=== PATIENT | male | born 1975 | race Caucasian/White ===

== ENCOUNTER → 2018-11-01 11:38 | Outpatient (CLI) | payer BC, SELFPAY ==
[2017-03-22 16:56] VITALS: BMI 22.7
[2018-11-01 12:57] LABS: Color, Urine Yellow (Yellow); Glucose, Dipstick Normal (Normal); Ketone-Dipstick Negative (Negative); Leukocyte Esterase-Dipstick Negative /ul (Negative); Nitrite-Dipstick Negative (Negative); Occult Blood-Urine Negative /ul (Negative); Protein-Dipstick Negative (Negative); Specific Gravity, Urine 1.015 (1.002-1.030); Urine Bilirubin Dipstick Negative (Negative); Urine Clarity Clear (Clear); Urine Urobilinogen Normal (Normal)
[2018-11-01 12:59] LABS: Absolute Lymphocyte Count 2.68 X10^3/ul (0.83-4.51); Absolute Neutrophil Count 3.3 X10^3/uL (2.0-7.7); Basophil# 0.04 X10^3/uL; Basophil% 0.6 % (0-1); Eosinophil# 0.18 X10^3/uL; Eosinophils% 2.7 % (0-5); Hematocrit 48.8 % (40-54); Hemoglobin 16.1 g/dl (13.0-16.5); Lymphocyte # 2.68 X10^3/ul (4.0); Lymphocyte % 39.9 % (19-41); Mean Corpuscular Volume 87.9 fL (80-94); Mean Platelet Vol. 9.9 fl (6.2-12.0); Monocyte# 0.51 X10^3/uL; Monocyte% 7.6 % (0-10); Neutrophil # 3.29 X10^3/uL (2.7-7.7); Neutrophil % 48.9 % (47-70); Platelet Count 280 K/mm3 (150-450); RBC Distribution Width CV 12.7 % (11.6-14.6); RBC Distribution Width SD 40.4 fl (35.1-43.9); Red Blood Count 5.55 M/mm3 (4.6-6.2); White Blood Count 6.7 K/mm3 (4.4-11.0)
[2018-11-01 13:00] LABS: POSITIVE COUNT NO; POSITIVE DIFFERENTIAL NO; POSITIVE MORPHOLOGY NO
[2018-11-01 13:09] LABS: ALB/GLOB Ratio 1.1 RATIO (0.9-2.4); AST(SGOT) 27 U/L (15-37); Alanine Aminotransfer ALT/SGPT 59 U/L (16-61); Albumin, Serum 4.1 g/dL (3.2-5.0); Alkaline Phosphatase 58 U/L (45-117); Anion Gap 8 (5-15); BUN 13 mg/dL (7-18); BUN/Creat Ratio 13.5 RATIO (10-20); Calcium,Total 8.8 mg/dL (8.5-10.1); Chloride 105 mmol/L (98-107); Cholesterol 262 mg/dL (200); Creatinine, Serum 0.97 mg/dL (0.70-1.30); EST Glomerular Filtration Rate 90 mL/min (>60); Est Glom Filt Rate - Afr Amer 109 mL/min (>60); Globulin 3.8 g/dL (2.2-4.2); Glucose 102 mg/dL (74-106); High Density Lipoprotein 38 mg/dL; Protein, Total 7.9 g/dL (6.4-8.2); Sodium Level 143 mmol/L (136-145); Triglycerides 174 mg/dL; Very Low Density Lipoprotein 35 mg/dL (5-40)
== END ==
PROVIDERS: Family Provider Family Medicine; PCP Family Medicine; Referring Provider Family Medicine; Visit Provider Family Medicine
DX: Z00.00 Encounter for general adult medical examination without abnormal findings (principal); I10 Essential (primary) hypertension
CPT/HCPCS: 36415; 80053; 80061; 81002; 85025

== ENCOUNTER → 2021-06-23 08:58 | Outpatient (CLI) | payer BC, SELFPAY ==
[2021-06-23 10:16] LABS: Absolute Lymphocyte Count 1.82 X10^3/uL (0.83-4.51); Absolute Neutrophil Count 2.6 X10^3/uL (2.0-7.7); Basophil# 0.03 X10^3/uL; Basophil% 0.6 % (0-1); Eosinophil# 0.16 X10^3/uL; Eosinophils% 3.2 % (0-5); Hematocrit 45.2 % (40-54); Hemoglobin 15.3 g/dL (13.0-16.5); Lymphocyte # 1.82 X10^3/ul (0.83-4.51); Lymphocyte % 36.1 % (19-41); Mean Corp Hgb Conc 33.8 g/dL (32-36); Mean Corpuscular Hgb 30.6 pg (27.0-32.0); Mean Corpuscular Volume 90.4 fL (80-94); Mean Platelet Vol. 10.1 fl (6.2-12.0); Monocyte% 7.9 % (0-10); NRBC Flagged by Analyzer 0 % (0-5); Neutrophil # 2.62 X10^3/uL (2.7-7.7); Platelet Count 266 K/mm3 (150-450); RBC Distribution Width SD 39.8 fl (35.1-43.9)
[2021-06-23 10:37] LABS: ALB/GLOB Ratio 1.1 RATIO (0.9-2.4); AST(SGOT) 13 U/L (15-37); Alanine Aminotransfer ALT/SGPT 28 U/L (16-61); Albumin, Serum 3.8 g/dL (3.2-5.0); Alkaline Phosphatase 41 U/L (45-117); Anion Gap 6 (5-15); BUN 12 mg/dL (7-18); BUN/Creat Ratio 11.7 RATIO (10-20); Calcium,Total 8.7 mg/dL (8.5-10.1); Chloride 103 mmol/L (98-107); Cholesterol 247 mg/dL (200); Creatinine, Serum 1.03 mg/dL (0.70-1.30); EST Glomerular Filtration Rate 83 mL/min (>60); Est Glom Filt Rate - Afr Amer 100 mL/min (>60); Globulin 3.6 g/dL (2.2-4.2); Glucose 113 mg/dL (74-106); High Density Lipoprotein 42 mg/dL; Potassium 4.3 mmol/L (3.5-5.1); Protein, Total 7.4 g/dL (6.4-8.2); Sodium Level 138 mmol/L (136-145); Thyroid Stim Hormone (TSH) 1.28 uIU/mL (0.358-3.74); Triglycerides 101 mg/dL; Very Low Density Lipoprotein 20 mg/dL (5-40)
[2021-06-24 13:04] LABS: Hemoglobin A1c 5.7 % (3.8-5.6)
== END ==
PROVIDERS: PCP Family Medicine; Referring Provider Family Medicine; Visit Provider Family Medicine
DX: I10 Essential (primary) hypertension (principal); R73.9 Hyperglycemia, unspecified
CPT/HCPCS: 36415; 80053; 80061; 83036; 84443; 85025

== ENCOUNTER 2021-09-19 15:53 | Outpatient (CLI) | payer BC, SELFPAY ==
[2021-09-19 15:58] LABS: Bacteria 0 SEEN /hpf (None Seen); Mucous, Urine 0 SEEN /hpf (<or=2+); Red Blood Cells-Urine 0 SEEN /hpf (0-5); Squamous Epithelial Cells - UA 0 SEEN /hpf (0-5); White Blood Cells 0 SEEN /hpf (0-5)
[2021-09-19 17:29] LABS: Absolute Lymphocyte Count 2.36 X10^3/uL (0.83-4.51); Absolute Neutrophil Count 3.5 X10^3/uL (2.0-7.7); Basophil# 0.04 X10^3/uL; Basophil% 0.6 % (0-1); Color, Urine Yellow (Yellow); Eosinophil# 0.18 X10^3/uL; Eosinophils% 2.7 % (0-5); Glucose, Dipstick Normal (Normal); Hematocrit 44.7 % (40-54); Hemoglobin 14.5 g/dL (13.0-16.5); Ketone-Dipstick Negative (Negative); Leukocyte Esterase-Dipstick Negative /ul (Negative); Lymphocyte # 2.36 X10^3/ul (0.83-4.51); Lymphocyte % 35.9 % (19-41); Mean Corp Hgb Conc 32.4 g/dL (32-36); Mean Corpuscular Hgb 29.4 pg (27.0-32.0); Mean Corpuscular Volume 90.5 fL (80-94); Mean Platelet Vol. 10.3 fl (6.2-12.0); Monocyte# 0.51 X10^3/uL; Monocyte% 7.8 % (0-10); NRBC Flagged by Analyzer 0 % (0-5); Neutrophil # 3.47 X10^3/uL (2.7-7.7); Neutrophil % 52.8 % (47-70); Nitrite-Dipstick Negative (Negative); Occult Blood-Urine Negative /ul (Negative); Platelet Count 310 K/mm3 (150-450); Protein-Dipstick Negative (Negative); RBC Distribution Width CV 12.3 % (11.6-14.6); RBC Distribution Width SD 40.8 fl (35.1-43.9); Red Blood Count 4.94 M/mm3 (4.6-6.2); Specific Gravity, Urine 1.015 (1.002-1.030); Urine Bilirubin Dipstick Negative (Negative); Urine Clarity Clear (Clear); Urine Urobilinogen Normal (Normal); White Blood Count 6.6 K/mm3 (4.4-11.0)
[2021-09-19 17:45] LABS: ALB/GLOB Ratio 1.2 RATIO (0.9-2.4); AST(SGOT) 12 U/L (15-37); Alanine Aminotransfer ALT/SGPT 23 U/L (16-61); Albumin, Serum 4.1 g/dL (3.2-5.0); Alkaline Phosphatase 44 U/L (45-117); Anion Gap 5 (5-15); BUN 14 mg/dL (7-18); BUN/Creat Ratio 15.3 RATIO (10-20); Calcium,Total 9.1 mg/dL (8.5-10.1); Chloride 103 mmol/L (98-107); Cholesterol 205 mg/dL (200); Creatinine, Serum 0.92 mg/dL (0.70-1.30); EST Glomerular Filtration Rate 95 mL/min (>60); Est Glom Filt Rate - Afr Amer 114 mL/min (>60); Globulin 3.3 g/dL (2.2-4.2); Glucose 97 mg/dL (74-106); High Density Lipoprotein 51 mg/dL; Potassium 3.9 mmol/L (3.5-5.1); Protein, Total 7.4 g/dL (6.4-8.2); Sodium Level 137 mmol/L (136-145); Triglycerides 147 mg/dL; Very Low Density Lipoprotein 29 mg/dL (5-40)
[2021-09-19 17:51] LABS: Hemoglobin A1c 5.1 % (3.8-5.6)
== END 2021-09-19 23:59 | disposition short-term general hospital (02) ==
LOC: MFPLAB 15:56
PROVIDERS: PCP Family Medicine; Referring Provider Family Medicine; Visit Provider Family Medicine
DX: I10 Essential (primary) hypertension (principal); E78.5 Hyperlipidemia, unspecified; R73.02 Impaired glucose tolerance (oral)
CPT/HCPCS: 36415; 80053; 80061; 81001; 83036; 85025

== ENCOUNTER 2021-11-03 09:54 | Outpatient (CLI) | payer BC, SELFPAY ==
--- NOTE | 2021-11-03 09:58 | ECHOD_ITS ---
Reason For Study: Arrhythmia Procedure This was a 2D Doppler, Color Flow transthoracic echocardiogram. Exam performed in department. Left Ventricle Normal LV size. Left ventricular systolic function is normal. The estimated ejection fraction is 55 %. Stage 2 diastolic dysfunction. No regional wall motion abnormalities noted. Right Ventricle Normal RV size. Normal systolic function. Atria Normal left atrium. Normal right atrium. Mitral Valve Mild mitral valve prolapse. Trivial mitral valve insufficiency. Tricuspid Valve Normal tricuspid valve. Aortic Valve Trisinus/trileaflet aortic valve. Pulmonic Valve Normal pulmonic valve. Great Vessels Normal aortic root. The pulmonary artery is normal size. Normal inferior vena cava. Pericardium/Pleural No pericardial effusion. MMode/2D Measurements & Calculations LVIDd: 4.8 cm IVSd: 1.0 cm Ao root diam: 3.0 cm LVIDs: 3.1 cm LVPWd: 1.0 cm RVDd: 3.5 cm FS: 35.1 % LAV(MOD-bp): 29.0 ml LVAd ap4: 32.3 cm2 LVAd ap2: 32.9 cm2 LAV(MOD-bp) Indexed: 14.0 ml/m2 LVLd ap4: 8.2 cm LVLd ap2: 8.5 cm LAV(MOD-sp2): 26.0 ml EDV(MOD-sp4): 106.2 ml EDV(MOD-sp2): 106.2 ml LAV(MOD-sp4): 31.0 ml EDV(sp4-el): 108.0 ml EDV(sp2-el): 108.0 ml LVAs ap4: 20.2 cm2 LVAs ap2: 20.6 cm2 LVLs ap4: 7.3 cm LVLs ap2: 7.7 cm ESV(MOD-sp4): 47.1 ml ESV(MOD-sp2): 46.8 ml ESV(sp4-el): 47.5 ml ESV(sp2-el): 47.1 ml EF(MOD-sp4): 55.6 % EF(MOD-sp2): 55.9 % EF(sp4-el): 56.0 % SV(MOD-sp4): 59.1 ml SV(MOD-sp2): 59.4 ml SV(sp4-el): 60.5 ml LA dimension(2D): 2.9 cm LA A4 area: 13.8 cm2 RA A4 area: 10.5 cm2 Doppler Measurements & Calculations MV E max kole: 94.6 cm/sec Lat Peak E' Kole: 12.7 cm/sec Med Peak E' Kole: 10.3 cm/sec MV A max kole: 50.6 cm/sec E/E' lat: 7.4 E/E' med: 9.1 MV E/A: 1.9 Ao V2 max: 116.4 cm/sec LV V1 max: 91.4 cm/sec PA V2 max: 88.4 cm/sec Ao max P.4 mmHg LV V1 max P.3 mmHg ECHO/Echo Complete Interpretation Summary Normal LV size. Left ventricular systolic function is normal. The estimated ejection fraction is 55 %. Stage 2 diastolic dysfunction. Mild mitral valve prolapse. Trivial mitral valve insufficiency. Ordering Physician: Tank Jose/Reinaldo Morley Referring Physician: Jyothi Marrufo Performed By: Princess Miranda RDCS
== END 2021-11-03 23:59 | disposition home or self-care (01) ==
PROVIDERS: PCP Family Medicine; Referring Provider Nurse Practitioner Family; Visit Provider Nurse Practitioner Family
DX: I34.1 Nonrheumatic mitral (valve) prolapse (principal); I47.1 Supraventricular tachycardia; I10 Essential (primary) hypertension; R00.2 Palpitations; I45.6 Pre-excitation syndrome
CPT/HCPCS: 93306

== ENCOUNTER → 2022-03-23 | Outpatient (CLI) | payer BC, SELFPAY ==
[2022-03-23 09:51] LABS: Bacteria 0 SEEN /hpf (None Seen); Mucous, Urine 0 SEEN /hpf (<or=2+); Red Blood Cells-Urine 0 SEEN /hpf (0-5); White Blood Cells 0 SEEN /hpf (0-5)
[2022-03-23 12:22] LABS: Absolute Lymphocyte Count 1.44 X10^3/uL (0.83-4.51); Absolute Neutrophil Count 2.2 X10^3/uL (2.0-7.7); Basophil# 0.03 X10^3/uL; Basophil% 0.7 % (0-1); Eosinophil# 0.12 X10^3/uL; Eosinophils% 2.8 % (0-5); Hematocrit 47.6 % (40-54); Hemoglobin 15.6 g/dL (13.0-16.5); Lymphocyte # 1.44 X10^3/ul (0.83-4.51); Lymphocyte % 34.1 % (19-41); Mean Corp Hgb Conc 32.8 g/dL (32-36); Mean Corpuscular Hgb 30.3 pg (27.0-32.0); Mean Corpuscular Volume 92.4 fL (80-94); Mean Platelet Vol. 10.2 fl (6.2-12.0); Monocyte# 0.39 X10^3/uL; Monocyte% 9.2 % (0-10); NRBC Flagged by Analyzer 0 % (0-5); Neutrophil # 2.22 X10^3/uL (2.7-7.7); Neutrophil % 52.7 % (47-70); Platelet Count 266 K/mm3 (150-450); RBC Distribution Width CV 12.3 % (11.6-14.6); RBC Distribution Width SD 42.2 fl (35.1-43.9); Red Blood Count 5.15 M/mm3 (4.6-6.2); White Blood Count 4.2 K/mm3 (4.4-11.0)
[2022-03-23 12:35] LABS: Color, Urine Yellow (Yellow); Glucose, Dipstick Normal (Normal); Ketone-Dipstick Negative (Negative); Leukocyte Esterase-Dipstick Negative /ul (Negative); Nitrite-Dipstick Negative (Negative); Occult Blood-Urine Negative /ul (Negative); Protein-Dipstick Negative (Negative); Urine Bilirubin Dipstick Negative (Negative); Urine Clarity Sl. Cloudy (Clear); Urine Urobilinogen Normal (Normal)
[2022-03-23 12:38] LABS: ALB/GLOB Ratio 1.1 RATIO (0.9-2.4); AST(SGOT) 15 U/L (15-37); Alanine Aminotransfer ALT/SGPT 25 U/L (16-61); Alkaline Phosphatase 43 U/L (45-117); Anion Gap 6 (5-15); BUN 12 mg/dL (7-18); BUN/Creat Ratio 13.3 RATIO (10-20); Calcium,Total 8.9 mg/dL (8.5-10.1); Chloride 105 mmol/L (98-107); Cholesterol 232 mg/dL (200); EST Glomerular Filtration Rate 96 mL/min (>60); Est Glom Filt Rate - Afr Amer 117 mL/min (>60); Globulin 3.6 g/dL (2.2-4.2); Glucose 105 mg/dL (74-106); High Density Lipoprotein 60 mg/dL; Potassium 4.1 mmol/L (3.5-5.1); Protein, Total 7.6 g/dL (6.4-8.2); Sodium Level 138 mmol/L (136-145); Triglycerides 119 mg/dL; Very Low Density Lipoprotein 24 mg/dL (5-40)
[2022-03-23 12:46] LABS: Squamous Epithelial Cells - UA 0-5 SEEN /hpf (0-5)
[2022-03-23 12:57] LABS: Hemoglobin A1c 5.2 % (3.8-5.6)
== END | disposition home or self-care (01) ==
LOC: MFPLAB 09:49
PROVIDERS: PCP Family Medicine; Referring Provider Family Medicine; Visit Provider Family Medicine
DX: E78.5 Hyperlipidemia, unspecified (principal); R73.02 Impaired glucose tolerance (oral); I10 Essential (primary) hypertension
CPT/HCPCS: 36415; 80053; 80061; 81001; 83036; 85025

== ENCOUNTER → 2023-08-05 | Outpatient (CLI) | payer BC, SELFPAY ==
[2023-08-05 16:45] LABS: Bacteria 0 SEEN /hpf (None Seen); Mucous, Urine 0 SEEN /hpf (<or=2+); Red Blood Cells-Urine 0 SEEN /hpf (0-5); Squamous Epithelial Cells - UA 0 SEEN /hpf (0-5)
[2023-08-05 17:43] LABS: Color, Urine Straw (Yellow); Glucose, Dipstick Normal (Normal); Ketone-Dipstick Negative (Negative); Leukocyte Esterase-Dipstick 25 /ul (Negative); Nitrite-Dipstick Negative (Negative); Occult Blood-Urine Negative /ul (Negative); Protein-Dipstick Negative (Negative); Specific Gravity, Urine 1.005 (1.002-1.030); Urine Bilirubin Dipstick Negative (Negative); Urine Clarity Clear (Clear); Urine Urobilinogen Normal (Normal); Urine pH 6.5 (5.0 - 8.0)
[2023-08-05 17:50] LABS: Absolute Lymphocyte Count 2.33 X10^3/uL (0.83-4.51); Absolute Neutrophil Count 3.4 X10^3/uL (2.0-7.7); Basophil# 0.05 X10^3/uL; Basophil% 0.8 % (0-1); Eosinophil# 0.18 X10^3/uL; Eosinophils% 2.7 % (0-5); Hematocrit 46.3 % (40-54); Hemoglobin 14.8 g/dL (13.0-16.5); Lymphocyte # 2.33 X10^3/ul (0.83-4.51); Lymphocyte % 35.4 % (19-41); Mean Corpuscular Hgb 29.8 pg (27.0-32.0); Mean Corpuscular Volume 93.2 fL (80-94); Mean Platelet Vol. 9.4 fl (6.2-12.0); Monocyte# 0.59 X10^3/uL; NRBC Flagged by Analyzer 0 % (0-5); Neutrophil # 3.39 X10^3/uL (2.7-7.7); Neutrophil % 51.5 % (47-70); Platelet Count 251 K/mm3 (150-450); RBC Distribution Width CV 12.9 % (11.6-14.6); RBC Distribution Width SD 43.6 fl (35.1-43.9); Red Blood Count 4.97 M/mm3 (4.6-6.2); White Blood Cells 0-5 SEEN /hpf (0-5); White Blood Count 6.6 K/mm3 (4.4-11.0)
[2023-08-05 18:15] LABS: Hemoglobin A1c 5.5 % (3.8-5.6)
[2023-08-05 18:23] LABS: ALB/GLOB Ratio 1.2 RATIO (0.9-2.4); AST(SGOT) 19 U/L (15-37); Alanine Aminotransfer ALT/SGPT 30 U/L (16-61); Albumin, Serum 4.1 g/dL (3.2-5.0); Alkaline Phosphatase 39 U/L (45-117); Anion Gap 5 (5-15); BUN 14 mg/dL (7-18); BUN/Creat Ratio 13.5 RATIO (10-20); Calcium,Total 8.8 mg/dL (8.5-10.1); Chloride 103 mmol/L (98-107); Cholesterol 249 mg/dL (200); Creatinine, Serum 1.04 mg/dL (0.70-1.30); EST Glomerular Filtration Rate 81 mL/min (>60); Est Glom Filt Rate - Afr Amer 98 mL/min (>60); Globulin 3.5 g/dL (2.2-4.2); Glucose 92 mg/dL (74-106); High Density Lipoprotein 63 mg/dL; Potassium 3.6 mmol/L (3.5-5.1); Protein, Total 7.6 g/dL (6.4-8.2); Sodium Level 137 mmol/L (136-145); Triglycerides 120 mg/dL; Very Low Density Lipoprotein 24 mg/dL (5-40)
== END | disposition home or self-care (01) ==
LOC: MFPLAB 16:39
PROVIDERS: PCP Family Medicine; Visit Provider Family Medicine
DX: R73.02 Impaired glucose tolerance (oral) (principal); I10 Essential (primary) hypertension
CPT/HCPCS: 36415; 80053; 80061; 81001; 83036; 85025

== ENCOUNTER 2023-12-06 18:09 | Emergency (ER) | payer BC, SELFPAY ==
[2023-12-06 18:10] VITALS: BP 156/114; PULSE 94; RESP 16; TEMP 36.7; O2SAT 99; BMI 23.6
--- NOTE | 2023-12-06 18:16 | EKG12_ITS ---
Test Reason : PALPS Blood Pressure : / mmHG Vent. Rate : 091 BPM Atrial Rate : 098 BPM P-R Int : 160 ms QRS Dur : 090 ms QT Int : 358 ms P-R-T Axes : 036 005 024 degrees QTc Int : 440 ms Sinus rhythm with sinus arrhythmia with occasional Premature ventricular complexes Otherwise normal ECG Confirmed by Eugene Mosquera ([id number]), editor house organ JESSICA BILLINGS ([id number]) on 12/08/2023 5:44:39 AM Referred By: Confirmed By:Eugene Mosquera
--- NOTE | 2023-12-06 18:33 | ED.VIS.CHEST ---
HPI History of Present Illness Chief Complaint: Palpitations Informant: patient Onset/Context/Timing Onset: Today Activity at onset: sudden Timing: Continuous Worsened By: Nothing Relieved By: Nothing Associated Symptoms: Positive for Palpitations; Negative for Nausea, Vomiting, Diaphoresis, Dyspnea, Cough, Fever, Lightheadedness or Acid Reflux Narrative Narrative: 48-year-old male history of AV cipriano tachycardia and Yxnvl-Aovjlpnfm-Bgbfq at age 22 at [facility] he had an ablation done. Also history of GE reflux and mitral valve prolapse. Today he was outside working doing yard work and exerting palpitations around 3:00. Heart rate was around 108. No chest pain. No shortness of breath. He does not drink caffeine. He has no thyroid history. He denies recent illness other than a URI several weeks ago. Since his ablation he has done well. He is on metoprolol. Prior Similar Symptoms: Yes Recent Illness/Hospitalization: No CVD Risk Factors: Positive for Hypertension; Negative for Diabetes PE Risk Factors: Negative for Recent Travel/Surgery, Recent Immobilization, Prior DVT or PE, Cancer or OCP + Smoking + >/=35 TAD Risk Factors: Negative for Marfan's Syndrome [facility] Medical History Acute bronchitis, unspecified Acute maxillary sinusitis, unspecified AVNRT (AV cipriano re-entry tachycardia) Essential hypertension GERD (gastroesophageal reflux disease) Hyperlipidemia Intermittent palpitations Laceration of left wrist Lipoma of back Nonrheumatic mitral (valve) prolapse URI (upper respiratory infection) WPW (Sfish-Ztxvuonho-Gvosj syndrome) Home Medications lisinopril 20 mg tablet 10 mg PO DAILY 10/06/21 [History Last Taken Unknown] metoprolol succinate 50 mg tablet,extended release 24 hr 50 mg PO DAILY #90 tabs 09/22/23 [Rx Last Taken Unknown] azithromycin 250 mg tablet 250 mg PO QDAY #6 tabs 11/23/23 [Rx Last Taken Unknown] Allergy/AdvReac Type Severity Reaction Status Date / Time No Known Allergies Allergy Verified 11/23/23 15:45 Family History Father Heart disease Myocardial infarction, Onset Age: 62 Surgical History History of radiofrequency ablation procedure for cardiac arrhythmia (05/13/99) History of shoulder surgery Social History Smoking Status: Never smoker alcohol intake: current alcohol intake frequency: a few times a month substance use type: does not use ROS ROS ED ROS Narrative Palpitations. No chest pain. No shortness of breath. No recent illness. Review of Systems ROS Unobtainable: Denies due to encephalopathy Constitutional Constitutional ED: Denies chills or fever(s) Eyes Eyes: Reports none ENT ENT ED: Denies ear pain Cardiovascular Cardiovascular: Reports as per HPI and palpitations; Denies chest pain Respiratory/Chest Respiratory/Chest: Denies cough or dyspnea Gastrointestinal Gastrointestinal: Denies abdominal pain Genitourinary Genitourinary ED: Denies dysuria or hematuria Musculoskeletal Musculoskeletal: Denies arthralgias, back pain, myalgias or neck pain Integumentary Denies abscess Neurologic Neurologic: Denies headache(s) Psychiatric Psychiatric: Denies anxiety or depression Endocrine Endocrinology: Denies cold intolerance Hematologic/Lymphatic Hematologic/Lymphatic: Denies easy bleeding, easy bruising or lymphadenopathy Allergic/Immunologic Allergic/Immunologic ED: Denies mouth swelling, tongue swelling or urticaria EXAM Physical Exam Narrative Exam Narrative: 48-year-old male vital signs stable afebrile. Initial blood pressure 156/114 to be rechecked. Pulse ox 9 9% on room air. Heart rate 94. PVCs on the monitor. HEENT exam unremarkable. Neck nontender no thyromegaly. No lymphadenopathy. Lungs clear to auscultation bilaterally. Heart regular rhythm occasional PVC. No murmur. Chest wall and ribs nontender. Abdomen soft nontender. Moving all 4 extremities. Calves are nontender without edema or cords. Neurologically is awake alert no focal motor deficits. Const Vital Signs: 12/06/23 18:10 12/06/23 18:39 12/06/23 18:41 Temperature 98.1 F Temperature Source Temporal Pulse Rate 94 Respiratory Rate 16 Respiratory Effort Normal Non-Labored Blood Pressure 156/114 H Blood Pressure Mean 128 Pulse Ox 99 98 Oxygen Delivery Method Room Air Room Air 12/06/23 19:09 Temperature 97.5 F L Temperature Source Oral Pulse Rate 88 Respiratory Rate 19 H Respiratory Effort Blood Pressure 135/88 H Blood Pressure Mean 103 Pulse Ox 98 Oxygen Delivery Method Room Air Positive well nourished and well developed; Negative for obese, cachectic, contractures or unkempt General Appearance ED: well developed and NAD; Negative for unkempt, cachectic, contractures or pallor Nutritional Appearance: Negative for cachectic or obese HEENT Reports moist mucous membranes normocephalic and atraumatic; Negative for trauma or tenderness Eyes PERRL and EOMs intact bilaterally General Eye ED: Negative for pale conjunctiva or scleral icterus Neck no lymphadenopathy, supple and no JVD General: Negative for tenderness Chest Wall inspection of chest normal and palpation of chest normal Chest: Negative for tenderness Resp normal respiratory effort and clear to auscultation bilaterally Effort and Inspection: Negative for respiratory distress Auscultation: Negative for rales, rhonchi, wheezes or diminished lung sounds Cardio regular rate, regular rhythm, S2 normal heart sound and no murmurs Rate: other Other Details: Occasional PVCs on monitor. ; Negative for bradycardia or tachycardic Rhythm: Negative for abnormal rhythm Peripheral Pulses: pulses 2+ throughout GI normal to inspection, nondistended, normoactive bowel sounds, soft to palpation, non-tender, non-distended and no masses Back/Spine no CVA tenderness and no thoracic nor lumbar tenderness General Back: Negative for CVA tenderness Cervical Spine: Negative for cervical spine tenderness Extremity normal to inspection General Extremety ED: Negative for edema or pulses abnormal General Extremity: Negative for edema or pulses abnormal Neuro oriented x3 and CN's II-XII intact bilaterally Sensorium / Orientation: awake, alert, oriented to person, oriented to place and oriented to time; Negative for confused, lethargic or stuporous Motor Exam: strength 5/5 throughout Psych mental status grossly normal Appearance: Negative for unkempt Attitude: No agitated Mood & Affect: Negative for depressed, anxious or tearful Skin no rashes or lesions noted and no wounds General Skin Exam: Negative for jaundice or pallor Rashes: No rashes noted Trauma: Negative for abrasion or laceration MDM MDM MDM Narrative Medical decision making narrative: 40-year-old male history of prior WPW with ablation about 26 years ago. He has done well since. He is on metoprolol and lisinopril. Today was our to the ER and had some palpitations. No chest pain. No shortness of breath. No lightheadedness. Clinically looks mildly dehydrated but given IV fluids and have a cardiac workup. His EKG just shows PVCs currently in sinus rhythm. Repeat exam patient doing well at 7:25 PM. We discussed his test results. He still having occasional PVC about every 10 beats. He is having no other symptoms. Clinically looks well. Again his heart is regular rhythm currently around 80-90. No murmur. He is receiving IV fluids and will be discharged home. History & Record Review Discussion w/independent historian: Patient and Family Additional record(s) reviewed:: Prior inpatient record, Prior outpatient record, Prior ED visit and Prior labs Lab Data Attestation: I reviewed the patient's lab results. Lab results narrative: CBC shows a white count 8.7. H&H of 15 and 45. Platelets 313. Electrolytes show gap 7. Normal BUN and creatinine is 16 and 0.9. Glucose 123. Troponin less than 3. Labs: Laboratory Results - last 24 hr 12/06/23 18:23 WBC 8.7 RBC 5.11 Hgb 15.3 Hct 45.3 MCV 88.6 MCH 29.9 MCHC 33.8 RDW Std Deviation 41.1 RDW Coeff of Tamie 12.6 Plt Count 313 MPV 9.3 Immature Gran % (Auto) 0.500 Neut % (Auto) 55.5 Lymph % (Auto) 33.3 [place] % (Auto) 7.6 Eos % (Auto) 2.3 Baso % (Auto) 0.8 Absolute Neuts (auto) 4.9 Absolute Lymphs (auto) 2.91 Nucleated RBC % 0 Sodium 136 Potassium 3.7 Chloride 102 Carbon Dioxide 27.0 Anion Gap 7 BUN 16 Creatinine 0.92 Estim Creat Clear Calc 114.17 Est GFR (MDRD) Af Amer 113 Est GFR (MDRD) Non-Af 94 BUN/Creatinine Ratio 17.5 Glucose 123 H Calcium 9.1 Troponin I High Sens < 3 L Rhythm Strip Rhythm Strip: Sinus Rhythm Rate: 91 Ectopy: PVC(s) EKG Initial EKG: Attestation: I personally reviewed and interpreted this EKG as follows: Interpretation: Sinus Rhythm and No Acute Injury Pattern Comments: Normal sinus rhythm rate of 91. Occasional PVCs. No ST elevation. No PA or ischemia. No dysrhythmia. Discharge Plan Triage Chief Complaint: Palpitations ED Provider: Ramirez Ku Dx/Rx/DC Orders Clinical Impression: Heart palpitations, PVC's (premature ventricular contractions), History of cardiac radiofrequency ablation, History of Fabjv-Hwfdjbsqg-Oipwj (WPW) syndrome Instructions: PVCs, ED Palpitations Prescriptions: No Action lisinopril 20 mg tablet 10 mg PO DAILY azithromycin 250 mg tablet 250 mg PO QDAY Qty: 6 0RF Rx Instructions: 2 tablets today, then 1 tablet daily on days 2 through 5 metoprolol succinate 50 mg tablet extended release 24 hr 50 mg PO DAILY Qty: 90 3RF Primary Care Provider: Tank Marrufo Referrals: Tank Marrufo MD [[facility]] - As Needed Activity Restrictions/Additional Instructions: Plenty of fluids. these are premature ventricular contractions or PVCs. This should resolve and go away on her own. They normally do not need to be treated. 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 Disposition Disposition: Home, Self Care
[2023-12-06 18:39] VITALS: O2SAT 98
[2023-12-06 18:48] LABS: Anion Gap 7 (5-15); BUN 16 mg/dL (7-18); BUN/Creat Ratio 17.5 RATIO (10-20); Calcium,Total 9.1 mg/dL (8.5-10.1); Chloride 102 mmol/L (98-107); Creatinine, Serum 0.92 mg/dL (0.70-1.30); EST Glomerular Filtration Rate 94 mL/min (>60); Est Glom Filt Rate - Afr Amer 113 mL/min (>60); Estimated Creatinine Clearance 114.17 ml/min; Glucose 123 mg/dL (74-106); Potassium 3.7 mmol/L (3.5-5.1); Sodium Level 136 mmol/L (136-145); Troponin-I HS < 3 pg/mL (3.0-78.0)
[2023-12-06 18:53] LABS: Absolute Lymphocyte Count 2.91 X10^3/uL (0.83-4.51); Absolute Neutrophil Count 4.9 X10^3/uL (2.0-7.7); Basophil# 0.07 X10^3/uL; Basophil% 0.8 % (0-1); Eosinophils% 2.3 % (0-5); Hematocrit 45.3 % (40-54); Hemoglobin 15.3 g/dL (13.0-16.5); Lymphocyte # 2.91 X10^3/ul (0.83-4.51); Lymphocyte % 33.3 % (19-41); Mean Corp Hgb Conc 33.8 g/dL (32-36); Mean Corpuscular Hgb 29.9 pg (27.0-32.0); Mean Corpuscular Volume 88.6 fL (80-94); Mean Platelet Vol. 9.3 fl (6.2-12.0); Monocyte# 0.66 X10^3/uL; Monocyte% 7.6 % (0-10); NRBC Flagged by Analyzer 0 % (0-5); Neutrophil # 4.85 X10^3/uL (2.7-7.7); Neutrophil % 55.5 % (47-70); Platelet Count 313 K/mm3 (150-450); RBC Distribution Width CV 12.6 % (11.6-14.6); RBC Distribution Width SD 41.1 fl (35.1-43.9); Red Blood Count 5.11 M/mm3 (4.6-6.2); White Blood Count 8.7 K/mm3 (4.4-11.0)
[2023-12-06] MEDS: 0.9% Normal Saline (1000mL) 1,000 ML 999 ML IV (19:01)
[2023-12-06 19:09] VITALS: BP 135/88; PULSE 88; RESP 19; TEMP 36.4; O2SAT 98
[2023-12-06 20:00] VITALS: BP 136/69; PULSE 87; RESP 16; TEMP 36.8; O2SAT 99
== END 2023-12-06 19:55 | disposition home or self-care (01) ==
PROVIDERS: Emergency Provider Emergency Medicine; PCP Family Medicine; Visit Provider Emergency Medicine
DX: R00.2 Palpitations (principal); I10 Essential (primary) hypertension; I49.3 Ventricular premature depolarization; I45.6 Pre-excitation syndrome; E78.5 Hyperlipidemia, unspecified; Z79.899 Other long term (current) drug therapy
CPT/HCPCS: 80048; 84484; 85025; 93005; 96360; 99284; J7030; A4216

== ENCOUNTER → 2023-12-07 | Outpatient (CLI) | payer BC, SELFPAY ==
[2023-12-07 15:32] LABS: Thyroid Stim Hormone (TSH) 1.19 uIU/mL (0.358-3.74)
== END | disposition home or self-care (01) ==
LOC: MFPLAB 11:25
PROVIDERS: PCP Family Medicine; Visit Provider Family Medicine
DX: R00.2 Palpitations (principal)
CPT/HCPCS: 36415; 84443

== ENCOUNTER → 2023-12-17 | Outpatient (CLI) | payer BC, SELFPAY ==
[2023-12-17 16:13] LABS: Magnesium 2.3 mg/dL (1.6-2.6)
== END | disposition home or self-care (01) ==
LOC: LAB 15:12
PROVIDERS: PCP Family Medicine; Referring Provider Nurse Practitioner Gerontology; Visit Provider Nurse Practitioner Gerontology
DX: Z98.890 Other specified postprocedural states (principal); R00.2 Palpitations; I47.10 Supraventricular tachycardia, unspecified; I45.6 Pre-excitation syndrome
CPT/HCPCS: 36415; 83735

== ENCOUNTER → 2024-02-14 | Outpatient (CLI) | payer BC, SELFPAY ==
--- NOTE | 2024-02-14 13:02 | ECHOCS_ITS ---
Reason For Study: MVP Procedure This was a 2D Doppler, Color Flow transthoracic echocardiogram. The study was technically difficult. Contrast injection was performed. Exam performed in department. Left Ventricle Normal LV size. Left ventricular systolic function is normal. The left ventricular ejection fraction is 55 %. No regional wall motion abnormalities noted. Right Ventricle Normal RV size. Normal systolic function. Mitral Valve Bileaflet diffuse mitral valve thickening. Mild (1+) eccentric mitral valve insufficiency. Pulmonic Valve Normal pulmonic valve. Great Vessels Normal aortic root. The pulmonary artery is normal size. Normal inferior vena cava. Pericardium/Pleural No pericardial effusion. Medication 22 gauge I.V. with prn adaptor inserted into right arm. Diluted definity 2.5ml given slow IV push to enhance endocardial definition. Performed a rapid injection of agitated mix of 9 cc saline and 1cc air to assess for atrial septal defect. MMode/2D Measurements & Calculations LVIDd: 4.8 cm IVSd: 0.96 cm Ao root diam: 2.9 cm LVIDs: 3.6 cm LVPWd: 1.3 cm FS: 25.3 % LAV(MOD-sp4): 31.3 ml SV(MOD-sp4): 72.7 ml LVAd ap4: 36.3 cm2 LVLd ap4: 8.4 cm EDV(MOD-sp4): 129.0 ml EDV(sp4-el): 132.4 ml LVAs ap4: 21.4 cm2 LVLs ap4: 6.9 cm ESV(MOD-sp4): 56.3 ml ESV(sp4-el): 56.7 ml EF(MOD-sp4): 56.4 % EF(sp4-el): 57.2 % SV(sp4-el): 75.7 ml LA dimension(2D): 3.3 cm LA A4 area: 14.0 cm2 TAPSE: 2.5 cm RA A4 area: 11.6 cm2 Time Measurements MV dec time: 0.13 sec Doppler Measurements & Calculations MV E max kole: 81.5 cm/sec Lat Peak E' Kole: 16.9 cm/sec Med Peak E' Kole: 13.7 cm/sec MV A max kole: 53.8 cm/sec E/E' lat: 4.8 E/E' med: 5.9 MV E/A: 1.5 MV V2 max: 97.3 cm/sec Ao V2 max: 127.6 cm/sec MV max P.8 mmHg MV dec slope: 684.4 cm/sec2 Ao max P.5 mmHg MV V2 mean: 61.7 cm/sec Ao V2 mean: 92.6 cm/sec MV mean P.7 mmHg Ao mean P.9 mmHg MV V2 VTI: 22.5 cm Ao V2 VTI: 29.5 cm AV (velocity ratio): 0.82 LV V1 max: 114.0 cm/sec LV V1 max P.2 mmHg LV V1 mean P.8 mmHg LV V1 mean: 78.1 cm/sec LV V1 VTI: 24.2 cm ECHO/Echo Complete W/ Contrast Interpretation Summary Normal LV size. Left ventricular systolic function is normal. The left ventricular ejection fraction is 55 %. Contrast injection was performed. Ordering Physician: Kassie Frias Referring Physician: Kassie Frias Performed By: Jannette Silva RCS
== END | disposition home or self-care (01) ==
LOC: CVS 12:59
PROVIDERS: PCP Family Medicine; Referring Provider Nurse Practitioner Gerontology; Visit Provider Nurse Practitioner Gerontology
DX: I34.1 Nonrheumatic mitral (valve) prolapse (principal)
CPT/HCPCS: 93306; Q9957; A4216; C8929

== ENCOUNTER → 2024-11-13 | Outpatient (CLI) | payer BC, SELFPAY | END | disposition home or self-care (01) | LOC: PSN 07:56 | PROVIDERS: PCP Family Medicine; Referring Provider Nurse Practitioner Family; Visit Provider Nurse Practitioner Family | DX: R00.2 Palpitations (principal) | CPT/HCPCS: 93225; 93226 ==

== ENCOUNTER → 2025-01-29 | Outpatient (CLI) | payer BC, SELFPAY ==
[2025-01-29 14:25] LABS: Bacteria 0 SEEN /hpf (None Seen); Red Blood Cells-Urine 0 SEEN /hpf (0-5)
[2025-01-29 18:05] LABS: Absolute Lymphocyte Count 1.76 X10^3/uL (0.83-4.51); Absolute Neutrophil Count 3.5 X10^3/uL (2.0-7.7); Basophil# 0.05 X10^3/uL; Basophil% 0.8 % (0-1); Eosinophil# 0.08 X10^3/uL; Eosinophils% 1.3 % (0-5); Hemoglobin 16.2 g/dL (13.0-16.5); Lymphocyte # 1.76 X10^3/ul (0.83-4.51); Lymphocyte % 29.3 % (19-41); Mean Corp Hgb Conc 33.8 g/dL (32-36); Mean Corpuscular Hgb 30.7 pg (27.0-32.0); Mean Corpuscular Volume 90.9 fL (80-94); Mean Platelet Vol. 10.7 fl (6.2-12.0); Monocyte# 0.54 X10^3/uL; NRBC Flagged by Analyzer 0 % (0-5); Neutrophil # 3.54 X10^3/uL (2.7-7.7); Neutrophil % 59.1 % (47-70); Platelet Count 222 K/mm3 (150-450); RBC Distribution Width CV 12.9 % (11.6-14.6); RBC Distribution Width SD 42.6 fl (35.1-43.9); Red Blood Count 5.28 M/mm3 (4.6-6.2)
[2025-01-29 18:48] LABS: Hemoglobin A1c 5.6 % (<=5.6)
[2025-01-29 18:50] LABS: Color, Urine Yellow (Yellow); Glucose, Dipstick Normal (Normal); Ketone-Dipstick 50 mg/dl (Negative); Leukocyte Esterase-Dipstick Negative /ul (Negative); Nitrite-Dipstick Negative (Negative); Occult Blood-Urine Negative /ul (Negative); Protein-Dipstick 15 mg/dl (Negative); Specific Gravity, Urine 1.025 (1.002-1.030); Urine Bilirubin Dipstick Negative (Negative); Urine Clarity Clear (Clear); Urine Urobilinogen Normal (Normal)
[2025-01-29 18:57] LABS: ALB/GLOB Ratio 1.7 RATIO (0.9-2.4); AST(SGOT) 31 U/L (<=37); Alanine Aminotransfer ALT/SGPT 37 U/L (<=46); Albumin, Serum 4.6 g/dL (3.5-5.0); Alkaline Phosphatase 43 U/L (40-129); Anion Gap 13 (5-15); BUN 13 mg/dL (4-19); BUN/Creat Ratio 15.5 RATIO (10-20); Calcium,Total 9.4 mg/dL (7.6-11.0); Carbon Dioxide 24.6 mmol/L (21.0-32.0); Chloride 99 mmol/L (98-108); Cholesterol 270 mg/dL (<=200); Creatinine, Serum 0.85 mg/dL (0.70-1.20); EST Glomerular Filtration Rate 107 (>60); Globulin 2.7 g/dL (2.2-4.2); Glucose 107 mg/dL (70-99); High Density Lipoprotein 68 mg/dL; Low Density Lipoprotein Calc. 183 mg/dL; Potassium 4.2 mmol/L (3.3-5.1); Protein, Total 7.3 g/dL (5.9-8.4); Sodium Level 137 mmol/L (133-145); Thyroid Stim Hormone (TSH) 0.899 uIU/mL (0.300-4.200); Total Bilirubin 0.74 mg/dL (0.00-1.30); Triglycerides 98 mg/dL; Very Low Density Lipoprotein 20 mg/dL (5-40); cholesterol:hdl ratio screen 3.99
[2025-01-29 19:02] LABS: Mucous, Urine 1+ /hpf (<or=2+); Squamous Epithelial Cells - UA 0-5 SEEN /hpf (0-5); White Blood Cells 0-5 SEEN /hpf (0-5)
== END | disposition home or self-care (01) ==
LOC: MTLAB 14:19
PROVIDERS: PCP Family Medicine; Referring Provider Family Medicine; Visit Provider Family Medicine
DX: R00.2 Palpitations (principal); I10 Essential (primary) hypertension; R73.02 Impaired glucose tolerance (oral); E78.5 Hyperlipidemia, unspecified
CPT/HCPCS: 36415; 80053; 80061; 81001; 83036; 83735; 84439; 84443; 85025

== ENCOUNTER 2025-02-05 10:31 | Emergency (ER) | payer BC, SELFPAY ==
[2025-02-05 10:32] VITALS: BP 161/98; PULSE 87; RESP 16; TEMP 37.2; O2SAT 100; BMI 22.1
--- NOTE | 2025-02-05 10:51 | ED.VIS.GI ---
HPI HPI - GI History of Present Illness Chief Complaint: Abd Pain Narrative Narrative: 49-year-old male past medical history of prediabetes, PVCs, on a beta-luis, presents with abdominal pain that has had for about 2 weeks. He states he feels bloated and has had decreased appetite. He states he went to his primary care provider and had large ketones in his urine, check them today and there were only trace amounts. He denies any fevers or chills, no nausea or vomiting. He states that loose stool ever since he started a beta-luis. Of note, he went to urgent care today and given his symptoms, sent him for further workup for his abdominal pain and bloating with decreased appetite. He denies any exacerbating or alleviating factors. No dysuria or hematuria. Is having pain on palpation of his suprapubic area to right lower quadrant. [facility] Medical History Impacted cerumen, left ear Acute bronchitis, unspecified Acute maxillary sinusitis, unspecified URI (upper respiratory infection) Intermittent palpitations Nonrheumatic mitral (valve) prolapse Hyperlipidemia GERD (gastroesophageal reflux disease) Essential hypertension AVNRT (AV cipriano re-entry tachycardia) WPW (Pkzwf-Rvuynhyaf-Qlhew syndrome) Lipoma of back Laceration of left wrist Home Medications ?Medication ?Instructions ?Recorded ?Last Taken ?Type lisinopril 20 mg tablet 20 mg PO QDAY 10/18/24 02/05/25 History metoprolol succinate 100 mg 100 mg PO DAILY #90 tabs 11/23/24 02/05/25 Rx tablet,extended release 24 hr fluticasone propionate 50 1 spray intranasal DAILY PRN 02/05/25 02/01/25 History mcg/actuation nasal allergies spray,suspension Allergy/AdvReac Type Severity Reaction Status Date / Time No Known Allergies Allergy Verified 02/05/25 10:32 Family History Father Heart disease Myocardial infarction, Onset Age: 62 Surgical History History of radiofrequency ablation procedure for cardiac arrhythmia (05/13/99) History of shoulder surgery Social History Smoking Status: Never smoker alcohol intake: current alcohol intake frequency: a few times a month substance use type: does not use caffeine: No ROS ROS ED ROS Narrative Review of systems is positive for abdominal pain, decreased appetite, abdominal bloating. Chronic loose stool. No fevers or chills. No nausea or vomiting. No dysuria or hematuria. No exacerbating or alleviating factors. No prior abdominal surgeries. EXAM Physical Exam Narrative Exam Narrative: Afebrile. Vital signs noted. Nontoxic-appearing. Cardiovascular examination feels a regular rate and rhythm. Lungs are clear to auscultation bilaterally. The abdomen is soft with mild tenderness to palpation in the suprapubic to right lower quadrant area. No guarding or rebound. Positive bowel sounds. Neurological examination nonfocal, nonlateralizing. Able to ambulate to the restroom independently. Const Vital Signs: 02/05/25 10:32 Temperature 98.9 F Temperature Source Oral Pulse Rate 87 Respiratory Rate 16 Blood Pressure 161/98 H Blood Pressure Mean 119 Pulse Ox 100 Oxygen Delivery Method Room Air MDM MDM MDM Narrative Medical decision making narrative: Differential diagnosis includes but not limited to acute appendicitis versus diverticulitis versus cystitis versus pyelonephritis versus ureterolithiasis. History and physical does not really support ureterolithiasis. CBC, BMP, and UA will be obtained as well as CT imaging. I reviewed his laboratory work and he has normal white count of 8.7 with hemoglobin 16.2, hematocrit 47.8, platelet count 246. Glucose slightly elevated at 116 with normal anion gap of 11, normal sodium and potassium. Urinalysis negative for ketones, negative for infection. I do not feel antibiotics are indicated. I reviewed the radiology report and there is no evidence of an acute process according to the impression. I did discuss this directly with the radiologist who read it as there may have been typographical errors. He states that there is no evidence of inflammation around the appendix in the lower quadrant. Upon repeat examination, he is resting comfortably. I had discussed the patient with the [facility] who was concerned about AAA. As there is no evidence of a leaking abdominal aortic aneurysm, I think he is having more nonspecific abdominal draped. I feel he can be discharged safely home with follow-up. Return instructions to the emergency department were reviewed. Disposition is discharged home in stable condition. History & Record Review Discussion w/independent historian: Patient Additional record(s) reviewed:: Prior ED visit (Seen last year for heart palpitations) Lab Data Attestation: I reviewed the patient's lab results. Labs: Laboratory Results - last 24 hr 02/05/25 11:15 WBC 8.7 RBC 5.22 Hgb 16.2 Hct 47.8 MCV 91.6 MCH 31.0 MCHC 33.9 RDW Std Deviation 43.4 RDW Coeff of Tamie 12.8 Plt Count 246 MPV 9.5 Immature Gran % (Auto) 0.600 Neut % (Auto) 79.8 H Lymph % (Auto) 12.0 L [place] % (Auto) 6.7 Eos % (Auto) 0.3 Baso % (Auto) 0.6 Absolute Neuts (auto) 6.9 Absolute Lymphs (auto) 1.04 Nucleated RBC % 0 Sodium 137 Potassium 4.6 Chloride 100 Carbon Dioxide 26.5 Anion Gap 11 BUN 13 Creatinine 0.91 Estim Creat Clear Calc 108.99 Est GFR (MDRD) Non-Af 103 BUN/Creatinine Ratio 13.7 Glucose 116 H Calcium 9.5 Urine Color Yellow Urine Clarity Clear Urine pH 6.5 Ur Specific [place] 1.005 Urine Protein Negative Urine Glucose (UA) Normal Urine Ketones Negative Urine Occult Blood Negative Urine Nitrite Negative Urine Bilirubin Negative Urine Urobilinogen Normal Ur Leukocyte Esterase Negative Urine RBC 0 SEEN Urine WBC 0 SEEN Ur Squamous Epith Cells 0 SEEN Urine Bacteria 0 SEEN Urine Mucus 0 SEEN Radiography Diagnostic Testing: Clinical Impression(s) from Imaging Studies Abdomen/Pelvis CT 02/05/25 11:45 IMPRESSION: No acute process detected. Reading [facility] Discharge Plan Triage Chief Complaint: Abd Pain ED Provider: Ortega Jaimes Dx/Rx/DC Orders Clinical Impression: Abdominal pain, Abdominal bloating Instructions: ED Abdominal Pain Unkn Cause Male... Prescriptions: No Action lisinopril 20 mg tablet 20 mg PO QDAY fluticasone propionate 50 mcg/actuation spray,suspension 1 spray INTRANASAL DAILY PRN (Reason: allergies) metoprolol succinate 100 mg tablet extended release 24 hr 100 mg PO DAILY Qty: 90 3RF Primary Care Provider: Tank Marrufo Referrals: Tank Marrufo MD [Primary Care Provider] - 3-5 Days if not improving Activity Restrictions/Additional Instructions: Return with increased abdominal pain, nausea and vomiting, new or worsening symptoms. Print Language: [place] Disposition Disposition: Home, Self Care
[2025-02-05] MEDS: 0.9% Normal Saline (1000mL) 1,000 ML 999 ML IV (11:23)
[2025-02-05 11:27] LABS: Absolute Lymphocyte Count 1.04 X10^3/uL (0.83-4.51); Absolute Neutrophil Count 6.9 X10^3/uL (2.0-7.7); Basophil# 0.05 X10^3/uL; Basophil% 0.6 % (0-1); Eosinophil# 0.03 X10^3/uL; Eosinophils% 0.3 % (0-5); Hematocrit 47.8 % (40-54); Hemoglobin 16.2 g/dL (13.0-16.5); Lymphocyte # 1.04 X10^3/ul (0.83-4.51); Mean Corp Hgb Conc 33.9 g/dL (32-36); Mean Corpuscular Volume 91.6 fL (80-94); Mean Platelet Vol. 9.5 fl (6.2-12.0); Monocyte# 0.58 X10^3/uL; Monocyte% 6.7 % (0-10); NRBC Flagged by Analyzer 0 % (0-5); Neutrophil # 6.93 X10^3/uL (2.7-7.7); Neutrophil % 79.8 % (47-70); Platelet Count 246 K/mm3 (150-450); RBC Distribution Width CV 12.8 % (11.6-14.6); RBC Distribution Width SD 43.4 fl (35.1-43.9); Red Blood Count 5.22 M/mm3 (4.6-6.2); White Blood Count 8.7 K/mm3 (4.4-11.0)
[2025-02-05 11:30] LABS: Bacteria 0 SEEN /hpf (None Seen); Mucous, Urine 0 SEEN /hpf (<or=2+); Red Blood Cells-Urine 0 SEEN /hpf (0-5); Squamous Epithelial Cells - UA 0 SEEN /hpf (0-5); White Blood Cells 0 SEEN /hpf (0-5)
[2025-02-05 11:32] LABS: Color, Urine Yellow (Yellow); Glucose, Dipstick Normal (Normal); Ketone-Dipstick Negative (Negative); Leukocyte Esterase-Dipstick Negative /ul (Negative); Nitrite-Dipstick Negative (Negative); Occult Blood-Urine Negative /ul (Negative); Protein-Dipstick Negative (Negative); Specific Gravity, Urine 1.005 (1.002-1.030); Urine Bilirubin Dipstick Negative (Negative); Urine Clarity Clear (Clear); Urine Urobilinogen Normal (Normal); Urine pH 6.5 (5.0 - 8.0)
--- NOTE | 2025-02-05 11:45 | CT_ITS ---
PROCEDURE: ABDOMEN/PELVIS W IV CONT ONLY N/A REASON FOR EXAM: PAIN TECHNIQUE: Abdomen and pelvis CT with intravenous contrast. Coronal and Sagittal reconstruction series were provided. PATIENT PREPARATION: Per protocol ORAL CONTRAST TYPE: None. AMOUNT: 0 mL CONTRAST: Isovue-300 VOLUME: 100 mL One or more dose reduction techniques were used (e.g., Automated exposure control, adjustment of the mA and/or kV according to patient size, use of iterative reconstruction technique. RADIATION DOSE SUMMARY: CTDlvol: 9.97 and 10.57 mGy DLP: 637.49 mGycm COMPARISON: None. FINDINGS: Lung bases: Clear The liver, gallbladder, spleen, pancreas, adrenals and kidneys are unremarkable. Bladder: Fcog-rj-kkesplss distention. Reproductive Organs: Unremarkable Bowel: Oral caliber in appearance. Appendix: Inflammatory process identified the lower quadrant Lymph nodes: No adenopathy. Vasculature: Normal, no plaque. Peritoneum / Retroperitoneum: No free air or free fluid Bones: No aggressive bone lesions CT/Abdomen/Pelvis W IV Cont ONLY IMPRESSION: No acute process detected. Reading [facility]
[2025-02-05 11:54] LABS: Anion Gap 11 (5-15); BUN 13 mg/dL (4-19); BUN/Creat Ratio 13.7 RATIO (10-20); Calcium,Total 9.5 mg/dL (7.6-11.0); Carbon Dioxide 26.5 mmol/L (21.0-32.0); Chloride 100 mmol/L (98-108); Creatinine, Serum 0.91 mg/dL (0.70-1.20); EST Glomerular Filtration Rate 103 (>60); Estimated Creatinine Clearance 108.99 ml/min (50-250); Glucose 116 mg/dL (70-99); Potassium 4.6 mmol/L (3.3-5.1); Sodium Level 137 mmol/L (133-145)
[2025-02-05 13:10] VITALS: BP 145/94; PULSE 69; RESP 16; O2SAT 98
--- OUTSIDE RECORDS SUMMARY | 2025-02-05 23:00 | XMS RPT_ITS | CCD ---
Author Organization [facility] Care Team Providers Care Marketing Sales Manager Name Role Phone ISAIAS CARRILLO Referring Unavailab le MD Tank Vidal Primary Care Provider Unav ailable MD Tank Vidal Referring Provider Unavail able Dr. Santiago aSlas Attending Provider CAMILLA Steele Attending Provider Dr. Tank Marrufo MD Primary Care Provider Dr. Tank Marrufo MD Referring Provider Rebeca PIPE JOINTS SUPERVISOR-CTank Attending Provider Rebeca PIPE JOINTS SUPERVISOR-CTank Referring Provider Milli NIX, Dr. Najera Attending Provider Enrique Steele Attending Provider [phone] Yaron NIX, Dr. Tank Vogel Attending Provider Ortega Jaimes MD Emergency Provider [phone] Reinaldo Morley Attending Unavailable Tank Marrufo Primary Care Unavailable Tank Jose NP Referring Unavailable Tank Marrufo Primary Care Unavailable Kassie Frias NP Attending Unavailable Tank Marrufo Primary Care Unavailable Enrique Steele Attending Unavailable Tank Marrufo Referring Unavailable Tank Marrufo Primary Care Unavailable Tank Jose NP Attending Unavailable Tank Marrufo Referring Unavailable SchTank long Referring Unavailable SchTank long Primary Care Unavailable Kassie Frias NP Attending Unavailable Tank Marrufo Primary Care Unavailable Tank Marrufo Attending Unavailable Tank Marrufo Referring Unavailable SchTank long Primary Care Unavailable Tank Jose NP Attending Unavailable Tank Jose NP Referring Unavailable SchTank long Primary Care Unavailable Ortega Jaimes Attending Unavailable Kassie Frias NP Attending Unavailable Kassie Frias NP Referring Unavailable Tank Marrufo Primary Care Unavailable Rodriguez MENG, Kassie Referring Unavailable Reinaldo Morley Attending Unavailable Tank Marrufo Primary Care Unavailable Tank Marrufo Primary Care Unavailable Enrique Steele Attending Unavailable Tank Marrufo Referring Unavailable Medications Current Medications Medication Drug Class(es) Dates Sig (Normalized) Sig (Original) fluticasone propionate 0.05 mg/actuat metered dose nasal spray (1 source) Corticosteroid Start: 02-05-2025 Fluticasone Propionate 50 mcg/actuation spray,suspension Active 1 NMA INTRANASAL DAILY as needed for allergies February 05, 2025 12:00am lisinopril 20 mg oral tablet (20 sources) Angiotensin Converting Enzyme Inhibitor Start: 10-18-2024 take 1 tablet by mouth once daily Lisinopril 20 mg tablet Active 20 mg PO daily October 18, 2024 1:00am Start: 03-27-2024 End: 10-18-2024 take 1 tablet by mouth once daily Lisinopril 10 mg tablet Discontinued 10 mg PO daily March 27, 2024 12:00am October 18, 2024 4:28pm Start: 10-06-2021 End: 03-27-2024 take 10 mg by mouth once daily Lisinopril 20 mg tablet Discontinued 10 mg PO DAILY October 06, 2021 3:10pm March 27, 2024 2:20pm Start: 10-06-2021 take 10 mg by mouth once daily Lisinopril Active 10 MG PO DAILY October 06, 2021 3:10pm Start: 08-20-2021 End: 10-06-2021 take 1 tablet by mouth once daily Lisinopril 20 mg tablet Discontinued 20 mg PO DAILY August 20, 2021 4:45pm October 06, 2021 3:10pm Start: 07-07-2021 End: 08-20-2021 take 1 tablet by mouth once daily Lisinopril 10 mg tablet Discontinued 10 mg PO DAILY July 07, 2021 1:00am August 20, 2021 4:46pm Completed/Discontinued Medications Medication Drug Class(es) Dates Sig (Normalized) Sig (Original) atenolol 50 mg oral tablet (18 sources) beta-Adrenergic Zion Start: 08-20-2021 End: 08-20-2021 take 1 tablet by mouth once daily Atenolol 50 mg tablet Discontinued 50 mg PO DAILY August 20, 2021 1:00am August 20, 2021 4:44pm Start: 03-22-2017 End: 07-07-2021 take 1 tablet by mouth once daily Atenolol 25 mg tablet Discontinued 25 mg PO DAILY November 21, 2019 3:05pm July 07, 2021 2:05pm azithromycin 250 mg oral tablet (12 sources) Macrolide Antimicrobial Start: 11-23-2023 End: 12-24-2023 Azithromycin 250 mg tablet Discontinued 250 mg PO daily November 23, 2023 12:00am December 24, 2023 2:54pm 2 tablets today, then 1 tablet daily on days 2 through 5 Start: 06-19-2021 End: 07-07-2021 Azithromycin 250 mg tablet D iscontinued 250 mg PO daily June 19, 2021 12:00am July 07, 2021 2:05pm 2 tablets today, then 1 tablet daily on days 2 through 5 benzonatate 200 mg oral capsule (6 sources) Non-narcotic Antitussive Start: 11-19-2022 End: 11-23-2023 take 1 capsule by mouth three times daily as needed for cough Benzonatate 200 mg capsule Discontinued 200 mg PO THREE TIMES A DAY as needed for cough November 19, 2022 12:00am November 23, 2023 3:46pm cephalexin 500 mg oral capsule (6 sources) Cephalosporin Antibacterial Start: 10-07-2020 End: 07-07-2021 take 1 capsule by mouth three times daily Cephalexin 500 mg capsule Discontinued 500 mg PO THREE TIMES A DAY October 07, 2020 1:00am July 07, 2021 2:05pm methylPREDNISolone 4 mg oral tablet (6 sources) Corticosteroid Start: 11-19-2022 End: 10-18-2023 take 1 tablet by mouth once Methylprednisolone (Medrol (Adnrés)) 4 mg tablets,dose pack Discontinued 0 PO per package directions November 19, 2022 12:00am October 18, 2023 9:16am PO PER PKG DIR 24 hr metoprolol succinate 100 mg extended release oral tablet (20 sources) beta-Adrenergic Zion Start: 03-27-2024 End: 11-23-2024 take 1 tablet by mouth once daily Metoprolol Succinate 100 mg tablet extended release 24 hr Discontinued 100 mg PO DAILY 90 October 18, 2024 4:55pm November 23, 2024 8:28am Start: 01-03-2024 End: 03-27-2024 take 1 tablet by mouth twice daily Metoprolol Tartrate 50 mg tablet Discontinued 50 mg PO TWICE A DAY 60 January 03, 2024 12:00am March 27, 2024 2:35pm Start: 12-31-2023 End: 01-03-2024 take 2 tablets by mouth twice daily Metoprolol Tartrate 25 mg tablet Discontinued 50 mg PO TWICE A DAY 60 December 31, 2023 5:08pm January 03, 2024 3:27pm Start: 12-24-2023 End: 12-31-2023 take 1 tablet by mouth twice daily Metoprolol Tartrate 25 mg tablet Discontinued 25 mg PO TWICE A DAY 60 December 24, 2023 12:00am December 31, 2023 5:08pm Start: 10-06-2021 End: 12-24-2023 take 1 tablet by mouth once daily Metoprolol Succinate 50 mg tablet extended release 24 hr Discontinued 50 mg PO DAILY 90 September 22, 2023 5:36pm December 24, 2023 3:17pm Start: 08-20-2021 End: 10-06-2021 take 1 tablet by mouth once daily Metoprolol Succinate (Toprol Xl) 25 mg tablet extended release 24 hr Discontinued 25 mg PO DAILY August 20, 2021 1:00am October 06, 2021 3:42pm Start: 07-07-2021 End: 08-20-2021 take 1 tablet by mouth once daily Metoprolol Succinate (Toprol Xl) 50 mg tablet extended release 24 hr Discontinued 50 mg PO DAILY July 07, 2021 1:00am August 20, 2021 4:13pm pantoprazole 40 mg delayed release oral tablet (12 sources) Proton Pump Inhibitor Start: 10-07-2020 End: 10-06-2021 Pantoprazole 40 mg tablet,delayed release (DR/EC) Discontinued {tbl} PO October 07, 2020 1:00am October 06, 2021 3:10pm Start: 10-07-2020 End: 10-06-2021 Pantoprazole Discontinued TA BLET PO October 07, 2020 1:00am October 06, 2021 3:10pm Start: 03-22-2017 End: 11-21-2019 take 1 tablet by mouth once daily Pantoprazole 40 MG tablet Discontinued 40 mg PO DAILY March 22, 2017 12:00am November 21, 2019 3:04pm traMADol (6 sources) Opioid Agonist Start: 03-22-2017 End: 11-21-2019 TraMADol Discontinued 25 mg PO NEEDED as needed for Pain March 22, 2017 12:00am November 21, 2019 3:04pm Start: 03-22-2017 End: 11-21-2019 TraMADol Discontinued 25 MG PO NEEDED March 22, 2017 12:00am November 21, 2019 3:04pm Problems Problem Classification Problem Date Documented Da te Episodic/Chronic Abdominal pain (1 source) Abdominal pain; Translations: [Unspecified abdominal pain] 02-05-2025 Episodic Acute bronchitis (6 sources) Acute bronchitis; Translations: [Acute bronchitis, unspecified] 11-19-2022 Episodic Cardiac dysrhythmias (12 sources) Re-entrant atrioventricular node tachycardia; 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] 08-20-2021 Chronic Cardiac dysrhythmias (16 sources) Palpitations; Translations: [Palpitations] Onset: 5 12-06-2023 Episodic Conduction disorders (9 sources) Kaxmi-Nxitneswi-Apbph pattern; 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-06-2021 Chronic Comment on above: RFA 1998 Disorders of lipid metabolism (9 sources) Hyperlipidemia; Translations: [Hyperlipidemia, unspecified] 10-06-2021 Chronic Essential hypertension (10 sources) Essential hypertension; Translations: [Essential (primary) hypertension] Onset: 5 08-20-2021 Chronic Heart valve disorders (10 sources) Mitral valve prolapse; Translations: [Nonrheumatic mitral (valve) prolapse] Onset: 4 08-20-2021 Chronic Open wounds of extremities (6 sources) Laceration of left wrist; Translations: [Laceration without foreign body of left wrist, initial encounter] 08-20-2021 Episodic Open wounds of extremities (6 sources) Puncture wound of right hand; Translations: [Puncture wound without foreign body of right hand, initial encounter] 08-20-2021 Episodic Other and unspecified benign neoplasm (6 sources) Lipoma of back; Translations: [Benign lipomatous neoplasm of skin and subcutaneous tissue of trunk] 10-18-2023 Episodic Other and unspecified benign neoplasm (3 sources) Benign lipomatous neoplasm of skin and subcutaneous tissue of trunk; Translations: [Lipoma of other specified sites] 10-18-2023 Episodic Other circulatory disease (6 sources) H/O: heart disorder; Translations: [Personal history of other diseases of the circulatory system] 12-06-2023 Episodic Other ear and sense organ disorders (4 sources) Impacted cerumen; Translations: [Impacted cerumen, left ear] 12-18-2024 Episodic Other gastrointestinal disorders (1 source) Abdominal bloating; Translations: [Abdominal distension (gaseous)] 02-05-2025 Episodic Other nervous system disorders (1 source) Unsteadiness on feet; Translations: [Unsteadiness on feet] Onset: Episodic Other upper respiratory infections (18 sources) Viral upper respiratory tract infection; Translations: [Acute upper respiratory infection, unspecified] 08-20-2021 Episodic Residual codes; unclassified (6 sources) History of radiofrequency ablation operation for arrhythmia; Translations: [Other specified postprocedural states] 12-06-2023 Episodic Results Test Name Value Interpretation Reference Range Facility Abdomen/Pelvis W IV Cont ONL Yon 02-05-2025 Abdomen/Pelvis W IV Cont ONLY [facility] [address] [place], [place] [id number] Abdomen/Pelvis W IV Cont ONLY MR#: [id number] Acct: [id number] Name: KINGSLEY MURRELL Rep #: [id number] : 1975 M 49 From: Guero Fung DO PCP: Dr. Tank Marrufo MD Status: REG ER Study: Abdomen/Pelvis W IV Cont ONLY Date of Exam: Exam# [id number] Ordering Dr: Ortega Jaimes MD PROCEDURE: ABDOMEN/PELVIS W IV CONT ONLY N/A REASON FOR EXAM: PAIN TECHNIQUE: Abdomen and pelvis CT with intravenous contrast. Coronal and Sagittal reconstruction series were provided. PATIENT PREPARATION: Per protocol ORAL CONTRAST TYPE: None. AMOUNT: 0 mL CONTRAST: Isovue-300 VOLUME: 100 mL One or more dose reduction techniques were used (e.g., Automated exposure control, adjustment of the mA and/or kV according to patient size, use of iterative reconstruction technique. RADIATION DOSE SUMMARY: CTDlvol: 9.97 and 10.57 mGy DLP: 637.49 mGycm COMPARISON: None. FINDINGS: Lung bases: Clear The liver, gallbladder, spleen, pancreas, adrenals and kidneys are unremarkable. Bladder: Igho-jw-offjuwqg distention. Reproductive Organs: Unremarkable Bowel: Oral caliber in appearance. Appendix: Inflammatory process identified the lower quadrant Lymph nodes: No adenopathy. Vasculature: Normal, no plaque. Peritoneum / Retroperitoneum: No free air or free fluid Bones: No aggressive bone lesions CT/Abdomen/Pelvis W IV Cont ONLY IMPRESSION: No acute process detected. Reading Location: [facility] CC: Dr. Ortega Jaimes MD; Dr. Tank Marrufo MD [address] Reporter: Signed Normal [facility] Absolute lymphocyte countOrd ered By: Ortega Jaimes on 02-05-2025 Lymphocytes Auto (Unsp spec) [#/Vol] 1.04 10*3/uL 0.83-4.51 [facility] Absolute neutrophil countOrd ered By: Ortega Jaimes on 02-05-2025 Neutrophils (Bld) [#/Vol] 6.9 10*3/uL 2.0-7.7 [facility] Anion gap in Serum or Plasma Ordered By: Ortega Jaimes on 02-05-2025 Anion gap [Moles/Vol] 11 mmol/L 5-15 [facility] Automated lymphocyte count a s percentage of total leukocytesOrdered By: Ortega Jaimes on 02-05-2025 Lymphocytes/100 WBC Auto (Unsp spec) 12.0 % Low 19-41 [facility] BUN/creatinine ratioOrdered By: Ortega Jaiems on 02-05-2025 Urea nitrogen/Creatinine [Mass ratio] 13.7 mg/mg - [facility] Basic Metabolic Profile (BMP )on 02-05-2025 BUN/CRE 13.7 RATIO Normal 06-18 [facility] Comment on above: Performed By: #### L 500.2500, L100.0100 #### [facility] [address] [place] [place] [place], [address] Calcium [Mass/Vol] 9.5 mg/dL Normal 7.6-11.0 [facility] Comment on above: Performed By: #### L 500.2500, L100.0100 #### [facility] [address] [place], [address] Chloride [Moles/Vol] 100 mmol/L Normal 98-108 [facility] Comment on above: Performed By: #### L 500.2500, L100.0100 #### [facility] [address] [place], [address] CO2 [Moles/Vol] 26.5 mmol/L Normal 21.0-32.0 [facility] Comment on above: Performed By: #### L 500.2500, L100.0100 #### [facility] [address] [place], [address] Creatinine [Mass/Vol] 0.91 mg/dL Normal 0.70-1.20 [facility] Comment on above: Performed By: #### L 500.2500, L100.0100 #### [facility] [address] [place], [address] ECRCL 108.99 ml/min Normal 50-250 [facility] Comment on above: Performed By: #### L 500.2500, L100.0100 #### [facility] [address] [place], [address] GAP 11 Normal 5-15 [facility] Comment on above: Performed By: #### L 500.2500, L100.0100 #### [facility] [address] [place], [address] GFR/1.73 sq M.predicted among non-blacks MDRD (S/P/Bld) [Vol rate/Area] 103 mL/min/{1.73_m2} Normal >60 [facility] Comment on above: Result Comment: mL/m in/1.73m2 CKD-EPI Creatinine Equation (2020) Performed By: #### L 500.2500, L100.0100 #### [facility] [address] [place], [address] Glucose [Mass/Vol] 116 mg/dL High 70-99 [facility] Comment on above: Performed By: #### L 500.2500, L100.0100 #### [facility] [address] [place], [address] Potassium [Moles/Vol] 4.6 mmol/L Normal 3.3-5.1 [facility] Comment on above: Performed By: #### L 500.2500, L100.0100 #### [facility] [address] [place], [address] Sodium [Moles/Vol] 137 mmol/L Normal 133-145 [facility] Comment on above: Performed By: #### L 500.2500, L100.0100 #### [facility] [address] [place], [address] Urea nitrogen [Mass/Vol] 13 mg/dL Normal 4-19 [facility] Comment on above: Performed By: #### L 500.2500, L100.0100 #### [facility] [address] [place], [address] Basophil percentageOrdered B y: Ortega Jaimes on 02-05-2025 Basophils/100 WBC (Bld) 0.6 % 0-1 [facility] Bilirubin Test strip Ql (U)O rdered By: Ortega Jaimes on 02-05-2025 Bilirubin Ql (U) Negative Negative [facility] CBC W/Diff, Automatedon 06-0 Absolute Lymph 1.04 X10 3/uL Normal 0.83-4.51 [facility] Comment on above: Performed By: #### L 500.2500, L100.0100 #### [facility] [address] [place], [address] Absolute Neut 6.9 X10 3/uL Normal 2.0-7.7 [facility] Comment on above: Performed By: #### L 500.2500, L100.0100 #### [facility] [address] [place], [address] Basophils/100 WBC (Bld) 0.6 % Normal 0-1 [facility] Comment on above: Performed By: #### L 500.2500, L100.0100 #### [facility] [address] [place], [address] Eosinophils/100 WBC (Bld) 0.3 % Normal 0-5 [facility] Comment on above: Performed By: #### L 500.2500, L100.0100 #### [facility] [address] [place], [address] Erythrocyte distribution width (RBC) [Ratio] 12.8 % Normal 11.6-14.6 [facility] Comment on above: Performed By: #### L 500.2500, L100.0100 #### [facility] [address] [place], [address] Hematocrit (Bld) [Volume fraction] 47.8 % Normal 40-54 [facility] Comment on above: Performed By: #### L 500.2500, L100.0100 #### [facility] [address] [place], [address] Hemoglobin (Bld) [Mass/Vol] 16.2 g/dL Normal 13.0-16.5 [facility] Comment on above: Performed By: #### L 500.2500, L100.0100 #### [facility] [address] [place], [address] IG% 0.600 Normal 0.0-0.9 [facility] Comment on above: Result Comment: IG% - Immature Granulocytes (promyelocytes, myelocytes and metamyelocytes) > 1% indicates that a LEFT SHIFT is Present. Performed By: #### L 500.2500, L100.0100 #### [facility] [address] [place], [address] Lymphocytes/100 WBC (Bld) 12.0 % Low 19-41 [facility] Comment on above: Performed By: #### L 500.2500, L100.0100 #### [facility] [address] [place], [address] MCH (RBC) [Entitic mass] 31.0 pg Normal 27.0-32.0 [facility] Comment on above: Performed By: #### L 500.2500, L100.0100 #### [facility] [address] [place], [address] MCHC (RBC) [Mass/Vol] 33.9 g/dL Normal 32-36 [facility] Comment on above: Performed By: #### L 500.2500, L100.0100 #### [facility] [address] [place], [address] MCV (RBC) [Entitic vol] 91.6 fL Normal 80-94 [facility] Comment on above: Performed By: #### L 500.2500, L100.0100 #### [facility] [address] [place], [address] Monocytes/100 WBC (Bld) 6.7 % Normal 0-10 [facility] Comment on above: Performed By: #### L 500.2500, L100.0100 #### [facility] [address] [place], [address] Neutrophils/100 WBC (Bld) 79.8 % High 47-70 [facility] Comment on above: Performed By: #### L 500.2500, L100.0100 #### [facility] [address] [place], [address] Nucleated RBC (Bld) [#/Vol] 0 10*3/uL Normal 0-5 [facility] Comment on above: Performed By: #### L 500.2500, L100.0100 #### [facility] [address] [place], [address] Platelet mean volume (Bld) [Entitic vol] 9.5 fL Normal 6.2-12.0 [facility] Comment on above: Performed By: #### L 500.2500, L100.0100 #### [facility] [address] [place], [address] Platelets (Bld) [#/Vol] 246 10*3/uL Normal 150-450 [facility] Comment on above: Performed By: #### L 500.2500, L100.0100 #### [facility] [address] [place], [address] RBC (Bld) [#/Vol] 5.22 10*6/uL Normal 4.6-6.2 [facility] Comment on above: Performed By: #### L 500.2500, L100.0100 #### [facility] [address] [place], [address] RDW SD 43.4 fl Normal 35.1-43.9 [facility] Comment on above: Performed By: #### L 500.2500, L100.0100 #### [facility] [address] [place], [address] WBC (Bld) [#/Vol] 8.7 10*3/uL Normal 4.4-11.0 [facility] Comment on above: Performed By: #### L 500.2500, L100.0100 #### [facility] [address] [place], [address] Carbon dioxide, total [Moles /volume] in Central venous bloodOrdered By: Ortega Jaimes on 02-05-2025 CO2 [Moles/Vol] 26.5 mmol/L 21.0-32.0 [facility] Chloride assayOrdered By: Willie Jaimes on 02-05-2025 Chloride [Moles/Vol] 100 mmol/L 98-108 [facility] Emergency Department Summary on 02-05-2025 Emergency Department Summary [facility] Medical Records Department [address] [place] [address] Emergency Department Summary 02/05/25 MR#: [id number] Acct: [id number] Name: KINGSLEY MURRELL Rep #: [id number] : 1975 49 From: Ortega Jaimes MD PCP: Dr. Tank Marrufo MD Status:REG ER Location: ED HPI HPI - GI History of Present Illness Chief Complaint: Abd Pain Narrative Narrative: 49-year-old male past medical history of prediabetes, PVCs, on a beta-zion, presents with abdominal pain that has had for about 2 weeks. He states he feels bloated and has had decreased appetite. He states he went to his primary care provider and had large ketones in his urine, check them today and there were only trace amounts. He denies any fevers or chills, no nausea or vomiting. He states that loose stool ever since he started a beta-zion. Of note, he went to urgent care today and given his symptoms, sent him for further workup for his abdominal pain and bloating with decreased appetite. He denies any exacerbating or alleviating factors. No dysuria or hematuria. Is having pain on palpation of his suprapubic area to right lower quadrant. 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) Lipoma of back Laceration of left wrist Home Medications ???Medication ???Instructions ???Recorded ???Last Taken ???Type lisinopril 20 mg tablet 20 mg PO QDAY 10/18/24 02/05/25 Hi story metoprolol succinate 100 mg 100 mg PO DAILY #90 tabs 11/23/24 02/05/25 Rx tablet,extended release 24 hr fluticasone propionate 50 1 spray intranasal DAILY PRN 02/0502/01/25 History mcg/actuation nasal allergies spray,suspension Allergy/AdvReac Type Severity Reaction Status Date / Time No Known Allergies Allergy Verified 02/05/25 10:32 Family History Father Heart disease Myocardial infarction, Onset Age: 62 Surgical History History of radiofrequency ablation procedure for cardiac arrhythmia (05/13/99) History of shoulder surgery Social History Smoking Status: Never smoker alcohol intake: current alcohol intake frequency: a few times a month substance use type: does not use caffeine: No ROS ROS ED ROS Narrative Review of systems is positive for abdominal pain, decreased appetite, abdominal bloating. Chronic loose stool. No fevers or chills. No nausea or vomiting. No dysuria or hematuria. No exacerbating or alleviating factors. No prior abdominal surgeries. EXAM Physical Exam Narrative Exam Narrative: Afebrile. Vital signs noted. Nontoxic-appearing. Cardiovascular examination feels a regular rate and rhythm. Lungs are clear to auscultation bilaterally. The abdomen is soft with mild tenderness to palpation in the suprapubic to right lower quadrant area. No guarding or rebound. Positive bowel sounds. Neurological examination nonfocal, nonlateralizing. Able to ambulate to the restroom independently. Const Vital Signs: 02/05/25 10:32 Temperature 98.9 F Temperature Source Oral Pulse Rate 87 Respiratory Rate 16 Blood Pressure 161/98 H Blood Pressure Mean 119 Pulse Ox 100 Oxygen Delivery Method Room Air MDM MDM MDM Narrative Medical decision making narrative: Differential diagnosis includes but not limited to acute appendicitis versus diverticulitis versus cystitis versus pyelonephritis versus ureterolithiasis. History and physical does not really support ureterolithiasis. CBC, BMP, and UA will be obtained as well as CT imaging. I reviewed his laboratory work and he has normal white count of 8.7 with hemoglobin 16.2, hematocrit 47.8, platelet count 246. Glucose slightly elevated at 116 with normal anion gap of 11, normal sodium and potassium. Urinalysis negative for ketones, negative for infection. I do not feel antibiotics are indicated. I reviewed the radiology report and there is no evidence of an acute process according to the impression. I did discuss this directly with the radiologist who read it as there may have been typographical errors. He states that there is no evidence of inflammation around the appendix in the lower quadrant. Upon repeat examination, he is resting comfortably. I had discussed the [facility] with [facility] who was concerned about AAA. As there is no evidence of a leaking abdomina (more content not included)... Normal [facility] Eosinophil percentageOrdered By: Ortega Jaimes on 02-05-2025 Eosinophils/100 WBC (Bld) 0.3 % 0-5 [facility] Erythrocyte distribution wid th ratioOrdered By: Ortega Jaimes on 02-05-2025 Erythrocyte distribution width (RBC) [Ratio] 12.8 % 11.6-14.6 [facility] Erythrocyte distribution wid th standard deviationOrdered By: Ortega Jaimes on 02-05-2025 Erythrocyte distribution width (RBC) [Ratio] 43.4 fl 35.1-43.9 [facility] Glomerular filtration rate ( GFR) estimation/1.73 sq m using serum, plasma, or whole bOrdered By: Ortega Jaimse on 02-05-2025 GFR/1.73 sq M.predicted among non-blacks MDRD (S/P/Bld) [Vol rate/Area] 103 mL/min/{1.73_m2} >60 [facility] Comment on above: mL/min/1.73m2 CKD-EP I Creatinine Equation (2020) Hematocrit Auto (Bld) [Volum e fraction]Ordered By: Ortega Jaimes on 02-05-2025 Hematocrit (Bld) [Volume fraction] 47.8 % 40-54 [facility] Hemoglobin measurementOrdere d By: Ortega Jaimes on 02-05-2025 Hemoglobin (Bld) [Mass/Vol] 16.2 g/dL 13.0-16.5 [facility] Immature granulocytes/100 WB C Auto (Bld)Ordered By: Ortega Jaimes on 02-05-2025 Immature granulocytes/100 WBC (Bld) 0.600 % 0.0-0.9 [facility] Comment on above: IG% - Immature Granu locytes (promyelocytes, myelocytes and metamyelocytes) > 1% indicates that a LEFT SHIFT is Present. Ketones Test strip Ql (U)Ord ered By: Ortega Jaimes on 02-05-2025 Ketones Ql (U) Negative Negative [facility] MCV (mean corpuscular volume ) determinationOrdered By: Ortega Jaimes on 02-05-2025 MCV (RBC) [Entitic vol] 91.6 fL 80-94 [facility] Mean corpuscular hemoglobin (MCH) determinationOrdered By: Ortega Jaimes on 02-05-2025 MCH (RBC) [Entitic mass] 31.0 pg 27.0-32.0 [facility] Mean corpuscular hemoglobin concentration (MCHC) determinationOrdered By: Ortega Jaimes on 02-05-2025 MCHC (RBC) [Mass/Vol] 33.9 g/dL 32-36 [facility] Mean platelet volume determi nationOrdered By: Ortega Jaimes on 02-05-2025 Platelet mean volume (Bld) [Entitic vol] 9.5 fL 6.2-12.0 [facility] Microscopic analysis of urin e for red blood cells (RBC)Ordered By: Ortega Jaimes on 02-05-2025 Microscopic analysis of urine for red blood cells (RBC) 0 SEEN /hpf 0-5 [facility] Monocyte percentageOrdered B y: Ortega Jaimes on 02-05-2025 Monocytes/100 WBC (Bld) 6.7 % 0-10 [facility] Mucus LM Ql (Urine sed)Order ed By: Ortega Jaimes on 02-05-2025 Mucus Ql (Urine sed) 0 SEEN /hpf [facility] Neutrophil percentageOrdered By: Ortega Jaimes on 02-05-2025 Neutrophils/100 WBC (Bld) 79.8 % High 47-70 [facility] Nitrite Test strip Ql (U)Ord ered By: Ortega Jaimes on 02-05-2025 Nitrite Ql (U) Negative Negative [facility] Nucleated red blood cell per centageOrdered By: Ortega Jaimes on 02-05-2025 Nucleated RBC/100 WBC (Bld) [Ratio] 0 % 0-5 [facility] Platelet countOrdered By: Willie Jaimes on 02-05-2025 Platelets (Bld) [#/Vol] 246 10*3/uL 150-450 [facility] Potassium measurement (mass/ volume)Ordered By: Ortega Jaimes on 02-05-2025 Potassium (Unsp spec) [Mass/Vol] 4.6 mmol/L 3.3-5.1 [facility] Protein Test strip Ql (U)Ord ered By: Ortega Jaimes on 02-05-2025 Protein Ql (U) Negative Negative [facility] RBC Auto (Bld) [#/Vol]Ordere d By: Ortega Jaimes on 02-05-2025 RBC (Bld) [#/Vol] 5.22 10*6/uL 4.6-6.2 [facility] Serum creatinine measurement (mass/volume)Ordered By: Ortega Jaimes on 02-05-2025 Creatinine [Mass/Vol] 0.91 mg/dL 0.70-1.20 [facility] Serum glucose measurement (m ass/volume)Ordered By: Ortega Jaimes on 02-05-2025 Glucose [Mass/Vol] 116 mg/dL High 70-99 [facility] Serum or plasma calcium hannah urement (mass/volume)Ordered By: Ortega Jaimes on 02-05-2025 Calcium [Mass/Vol] 9.5 mg/dL 7.6-11.0 [facility] Serum or plasma urea nitroge n measurement (mass/volume)Ordered By: Ortega Jaimes on 02-05-2025 Urea nitrogen [Mass/Vol] 13 mg/dL 4-19 [facility] Sodium levelOrdered By: Ortega Jaimes on 02-05-2025 Sodium [Moles/Vol] 137 mmol/L 133-145 [facility] Squamous epithelial cells de tection in urine sediment by light microscopyOrdered By: Ortega Jaimes on 02-05-2025 Epithelial cells.squamous LM Ql (Urine sed) 0 SEEN /hpf 0-5 [facility] Urinalysis, Completeon 02-05 BACTERIA 0 SEEN Normal None Seen [facility] Comment on above: Order Comment: CLEAN CATCH Performed By: #### L 400.0001 #### [facility] [address] [place], [address] EPI,SQUAMOUS 0 SEEN Normal 0-5 [facility] Comment on above: Order Comment: CLEAN CATCH Performed By: #### L 400.0001 #### [facility] [address] [place], [address] Mucus Ql (Urine sed) 0 SEEN Normal [facility] Comment on above: Order Comment: CLEAN CATCH Performed By: #### L 400.0001 #### [facility] [address] [place], [address] RBC 0 SEEN Normal 0-5 [facility] Comment on above: Order Comment: CLEAN CATCH Performed By: #### L 400.0001 #### [facility] [address] [place], [address] WBC 0 SEEN Normal 0-5 [facility] Comment on above: Order Comment: CLEAN CATCH Performed By: #### L 400.0001 #### [facility] [address] [place], [address] Urine clarityOrdered By: Eryn Jaimes on 02-05-2025 Clarity (U) Clear Clear [facility] Urine color determinationOrd ered By: Ortega Jaimes on 02-05-2025 Color (U) Yellow Yellow [facility] Urine glucose detectionOrder ed By: Ortega Jaimes on 02-05-2025 Glucose Ql (U) Normal mg/dl Normal [facility] Urine leukocyte esterase det ection by dipstickOrdered By: Ortega Jaimes on 02-05-2025 Leukocyte esterase Test strip Ql (U) Negative Negative [facility] Urine pHOrdered By: Ortega scott on 02-05-2025 pH (U) 6.5 [pH] 5.0 - 8.0 [facility] Urine sediment bacteria coun t by microscopy (number/high power field)Ordered By: Ortega Jaimes on 02-05-2025 Bacteria LM.HPF (Urine sed) [#/Area] 0 /[HPF] None Seen [facility] Urine specific gravity measu rementOrdered By: Ortega Jaimes on 02-05-2025 Specific gravity (U) [Rel density] 1.005 1.002-1.030 [facility] Urine urobilinogen measureme ntOrdered By: Ortega Jaimes on 02-05-2025 Urobilinogen Ql (U) Normal mg/dl Normal [facility] White blood cell (WBC) count Ordered By: Ortega Jaimes on 02-05-2025 WBC (Bld) [#/Vol] 8.7 10*3/uL 4.4-11.0 [facility] White blood cell countOrdere d By: Ortega Jaimes on 02-05-2025 White blood cell count 0 SEEN /hpf 0-5 [facility] Absolute lymphocyte countOrd ered By: Takn Marrufo on 01-29-2025 Lymphocytes Auto (Unsp spec) [#/Vol] 1.76 10*3/uL 0.83-4.51 [facility] Absolute neutrophil countOrd ered By: Tank Marrufo on 01-29-2025 Neutrophils (Bld) [#/Vol] 3.5 10*3/uL 2.0-7.7 [facility] Anion gap in Serum or Plasma Ordered By: Tank Marrufo on 01-29-2025 Anion gap [Moles/Vol] 13 mmol/L 5-15 [facility] Automated lymphocyte count a s percentage of total leukocytesOrdered By: Tank Marrufo on 01-29-2025 Lymphocytes/100 WBC Auto (Unsp spec) 29.3 % 19-41 [facility] BUN/creatinine ratioOrdered By: Tank Marrufo on 01-29-2025 Urea nitrogen/Creatinine [Mass ratio] 15.5 mg/mg 10-20 [facility] Basophil percentageOrdered B y: Tank Marrufo on 01-29-2025 Basophils/100 WBC (Bld) 0.8 % 0-1 [facility] Bilirubin Test strip Ql (U)O rdered By: Tank Marrufo on 01-29-2025 Bilirubin Ql (U) Negative Negative [facility] Bilirubin, totalOrdered By: Tank Marrufo on 01-29-2025 Bilirubin [Mass/Vol] 0.74 mg/dL 0.00-1.30 [facility] CBC W/Diff, Automatedon Absolute Lymph 1.76 X10 3/uL Normal 0.83-4.51 [facility] Comment on above: Order Comment: Order Date: 02/02/24 Order Info: [id number] - CBCD Performed By: #### L 506.0400, L500.4100, L500.4050, L501.5200, L501.9520, L100.0100, L501.9985 #### [facility] [address], [address] Absolute Neut 3.5 X10 3/uL Normal 2.0-7.7 [facility] Comment on above: Order Comment: Order Date: 02/02/24 Order Info: [id number] - CBCD Performed By: #### L 506.0400, L500.4100, L500.4050, L501.5200, L501.9520, L100.0100, L501.9985 #### [facility] [address] [place], [address] Basophils/100 WBC (Bld) 0.8 % Normal 0-1 [facility] Comment on above: Order Comment: Order Date: 02/02/24 Order Info: [id number] - CBCD Performed By: #### L 506.0400, L500.4100, L500.4050, L501.5200, L501.9520, L100.0100, L501.9985 #### [facility] [address] [place], [address] Eosinophils/100 WBC (Bld) 1.3 % Normal 0-5 [facility] Comment on above: Order Comment: Order Date: 02/02/24 Order Info: [id number] - CBCD Performed By: #### L 506.0400, L500.4100, L500.4050, L501.5200, L501.9520, L100.0100, L501.9985 #### [facility] [address] [place], [address] Erythrocyte distribution width (RBC) [Ratio] 12.9 % Normal 11.6-14.6 [facility] Comment on above: Order Comment: Order Date: 02/02/24 Order Info: [id number] - CBCD Performed By: #### L 506.0400, L500.4100, L500.4050, L501.5200, L501.9520, L100.0100, L501.9985 #### [facility] [address] [place], [address] (277) Hematocrit (Bld) [Volume fraction] 48.0 % Normal 40-54 [facility] Comment on above: Order Comment: Order Date: 02/02/24 Order Info: [id number] - CBCD Performed By: #### L 506.0400, L500.4100, L500.4050, L501.5200, L501.9520, L100.0100, L501.9985 #### [facility] [address] [place], [address] ( Hemoglobin (Bld) [Mass/Vol] 16.2 g/dL Normal 13.0-16.5 [facility] Comment on above: Order Comment: Order Date: 02/02/24 Order Info: [id number] - CBCD Performed By: #### L 506.0400, L500.4100, L500.4050, L501.5200, L501.9520, L100.0100, L501.9985 #### [facility] [address] [place], [address] ( IG% 0.500 Normal 0.0-0.9 [facility] Comment on above: Order Comment: Order Date: 02/02/24 Order Info: [id number] - CBCD Result Comment: IG% - Immature Granulocytes (promyelocytes, myelocytes and metamyelocytes) > 1% indicates that a LEFT SHIFT is Present. Performed By: #### L 506.0400, L500.4100, L500.4050, L501.5200, L501.9520, L100.0100, L501.9985 #### [facility] [address] [place], [address] Lymphocytes/100 WBC (Bld) 29.3 % Normal 19-41 [facility] Comment on above: Order Comment: Order Date: 02/02/24 Order Info: [id number] - CBCD Performed By: #### L 506.0400, L500.4100, L500.4050, L501.5200, L501.9520, L100.0100, L501.9985 #### [facility] [address] [place], [address] MCH (RBC) [Entitic mass] 30.7 pg Normal 27.0-32.0 [facility] Comment on above: Order Comment: Order Date: 02/02/24 Order Info: [id number] - CBCD Performed By: #### L 506.0400, L500.4100, L500.4050, L501.5200, L501.9520, L100.0100, L501.9985 #### [facility] [address] [place], [address] MCHC (RBC) [Mass/Vol] 33.8 g/dL Normal 32-36 [facility] Comment on above: Order Comment: Order Date: 02/02/24 Order Info: [id number] - CBCD Performed By: #### L 506.0400, L500.4100, L500.4050, L501.5200, L501.9520, L100.0100, L501.9985 #### [facility] [address] [place], [address] MCV (RBC) [Entitic vol] 90.9 fL Normal 80-94 [facility] Comment on above: Order Comment: Order Date: 02/02/24 Order Info: [id number] - CBCD Performed By: #### L 506.0400, L500.4100, L500.4050, L501.5200, L501.9520, L100.0100, L501.9985 #### [facility] [address] [place], [address] Monocytes/100 WBC (Bld) 9.0 % Normal 0-10 [facility] Comment on above: Order Comment: Order Date: 02/02/24 Order Info: [id number] - CBCD Performed By: #### L 506.0400, L500.4100, L500.4050, L501.5200, L501.9520, L100.0100, L501.9985 #### [facility] [address] [place], [place], [address] (468) Neutrophils/100 WBC (Bld) 59.1 % Normal 47-70 [facility] Comment on above: Order Comment: Order Date: 02/02/24 Order Info: [id number] - CBCD Performed By: #### L 506.0400, L500.4100, L500.4050, L501.5200, L501.9520, L100.0100, L501.9985 #### [facility] [address] [place], [address] Nucleated RBC (Bld) [#/Vol] 0 10*3/uL Normal 0-5 [facility] Comment on above: Order Comment: Order Date: 02/02/24 Order Info: [id number] - CBCD Performed By: #### L 506.0400, L500.4100, L500.4050, L501.5200, L501.9520, L100.0100, L501.9985 #### [facility] [address] [place], [address] Platelet mean volume (Bld) [Entitic vol] 10.7 fL Normal 6.2-12.0 [facility] Comment on above: Order Comment: Order Date: 02/02/24 Order Info: [id number] - CBCD Performed By: #### L 506.0400, L500.4100, L500.4050, L501.5200, L501.9520, L100.0100, L501.9985 #### [facility] [address] [place], [address] Platelets (Bld) [#/Vol] 222 10*3/uL Normal 150-450 [facility] Comment on above: Order Comment: Order Date: 02/02/24 Order Info: [id number]- - CBCD Performed By: #### L 506.0400, L500.4100, L500.4050, L501.5200, L501.9520, L100.0100, L501.9985 #### [facility] [address] [place], [place], [id number] (213) RBC (Bld) [#/Vol] 5.28 10*6/uL Normal 4.6-6.2 [facility] Comment on above: Order Comment: Order Date: 02/02/24 Order Info: [id number]- - CBCD Performed By: #### L 506.0400, L500.4100, L500.4050, L501.5200, L501.9520, L100.0100, L501.9985 #### [facility] [address] [place], [address] RDW SD 42.6 fl Normal 35.1-43.9 [facility] Comment on above: Order Comment: Order Date: 02/02/24 Order Info: [id number] - CBCD Performed By: #### L 506.0400, L500.4100, L500.4050, L501.5200, L501.9520, L100.0100, L501.9985 #### [facility] [address] [place], [place], [address] WBC (Bld) [#/Vol] 6.0 10*3/uL Normal 4.4-11.0 [facility] Comment on above: Order Comment: Order Date: 02/02/24 Order Info: [id number] - CBCD Performed By: #### L 506.0400, L500.4100, L500.4050, L501.5200, L501.9520, L100.0100, L501.9985 #### [facility] [address] [place], [address] Calculated very low density lipoprotein (VLDL) cholesterol measurementOrdered By: Tank Marrufo on 01-29-2025 Calculated very low density lipoprotein (VLDL) cholesterol measurement 20 mg/dL 5-40 [facility] Carbon dioxide, total [Moles /volume] in Central venous bloodOrdered By: Tank Marrufo on 01-29-2025 CO2 [Moles/Vol] 24.6 mmol/L 21.0-32.0 [facility] Chloride assayOrdered By: Camila Marrufo on 01-29-2025 Chloride [Moles/Vol] 99 mmol/L 98-108 [facility] Comprehensive Metabolic Prof ilon 01-29-2025 Albumin [Mass/Vol] 4.6 g/dL Normal 3.5-5.0 [facility] Comment on above: Order Comment: Order Date: 02/02/24Order Info: [id number] - CMPOrder Info: [id number] - LIPIDOrder Info: [id number] - MGOrder Info: [id number] - TSHOrder Info: [id number] - T4F Performed By: #### L 506.0400, L500.4100, L500.4050, L501.5200, L501.9520, L100.0100, L501.9985 ####[facility] [address] [place], [place], [id number] Albumin/Globulin [Mass ratio] 1.7 {ratio} Normal 0.9-2.4 [facility] Comment on above: Order Comment: Order Date: 02/02/24Order Info: [id number] - CMPOrder Info: [id number] - LIPIDOrder Info: [id number] - MGOrder Info: [id number] - TSHOrder Info: 7 - T4F Performed By: #### L 506.0400, L500.4100, L500.4050, L501.5200, L501.9520, L100.0100, L501.9985 ####[facility] [address] [place], [address] ALK PHOS 43 U/L Normal 40-129 [facility] Comment on above: Order Comment: Order Date: 02/02/24Order Info: [id number] - CMPOrder Info: [id number] - LIPIDOrder Info: [id number] - MGOrder Info: [id number] - TSHOrder Info: 7 - T4F Performed By: #### L 506.0400, L500.4100, L500.4050, L501.5200, L501.9520, L100.0100, L501.9985 ####[facility] [address] [place], [address] ALT [Catalytic activity/Vol] 37 U/L Normal <=46 [facility] Comment on above: Order Comment: Order Date: 02/02/24Order Info: [id number] - CMPOrder Info: [id number] - LIPIDOrder Info: [id number] - MGOrder Info: [id number] - TSHOrder Info: 7 - T4F Performed By: #### L 506.0400, L500.4100, L500.4050, L501.5200, L501.9520, L100.0100, L501.9985 ####[facility] [address] [place], [address] AST [Catalytic activity/Vol] 31 U/L Normal <=37 [facility] Comment on above: Order Comment: Order Date: 02/02/24Order Info: [id number] - CMPOrder Info: [id number] - LIPIDOrder Info: [id number] - MGOrder Info: 3 - TSHOrder Info: [id number] - T4F Performed By: #### L 506.0400, L500.4100, L500.4050, L501.5200, L501.9520, L100.0100, L501.9985 ####[facility] [address] [place], [address] Bilirubin [Mass/Vol] 0.74 mg/dL Normal 0.00-1.30 [facility] Comment on above: Order Comment: Order Date: 02/02/24Order Info: [id number] - CMPOrder Info: [id number] - LIPIDOrder Info: [id number] - MGOrder Info: 3 - TSHOrder Info: [id number] - T4F Performed By: #### L 506.0400, L500.4100, L500.4050, L501.5200, L501.9520, L100.0100, L501.9985 ####[facility] [address] [place], [address] BUN/CRE 15.5 RATIO Normal 10-20 [facility] Comment on above: Order Comment: Order Date: 02/02/24Order Info: [id number] - CMPOrder Info: [id number] - LIPIDOrder Info: [id number] - MGOrder Info: 3 - TSHOrder Info: [id number] - T4F Performed By: #### L 506.0400, L500.4100, L500.4050, L501.5200, L501.9520, L100.0100, L501.9985 ####[facility] [address] [place], [address] Calcium [Mass/Vol] 9.4 mg/dL Normal 7.6-11.0 [facility] Comment on above: Order Comment: Order Date: 02/02/24Order Info: [id number] - CMPOrder Info: [id number] - LIPIDOrder Info: [id number] - MGOrder Info: [id number] - TSHOrder Info: [id number] - T4F Performed By: #### L 506.0400, L500.4100, L500.4050, L501.5200, L501.9520, L100.0100, L501.9985 ####[facility] [address] [place], [address] Chloride [Moles/Vol] 99 mmol/L Normal 98-108 [facility] Comment on above: Order Comment: Order Date: 02/02/24Order Info: [id number] - CMPOrder Info: [id number] - LIPIDOrder Info: [id number] - MGOrder Info: [id number] - TSHOrder Info: [id number] - T4F Performed By: #### L 506.0400, L500.4100, L500.4050, L501.5200, L501.9520, L100.0100, L501.9985 ####[facility] [address] [place], [address] CO2 [Moles/Vol] 24.6 mmol/L Normal 21.0-32.0 [facility] Comment on above: Order Comment: Order Date: 02/02/24Order Info: [id number] - CMPOrder Info: [id number] - LIPIDOrder Info: [id number] - MGOrder Info: [id number] - TSHOrder Info: [id number] - T4F Performed By: #### L 506.0400, L500.4100, L500.4050, L501.5200, L501.9520, L100.0100, L501.9985 ####[facility] [address] [place], [address] Creatinine [Mass/Vol] 0.85 mg/dL Normal 0.70-1.20 [facility] Comment on above: Order Comment: Order Date: 02/02/24Order Info: [id number] - CMPOrder Info: [id number] - LIPIDOrder Info: [id number] - MGOrder Info: [id number] - TSHOrder Info: [id number] - T4F Performed By: #### L 506.0400, L500.4100, L500.4050, L501.5200, L501.9520, L100.0100, L501.9985 ####[facility] [address] [place], [address] GAP 13 Normal 5-15 [facility] Comment on above: Order Comment: Order Date: 02/02/24Order Info: [id number] - CMPOrder Info: [id number] - LIPIDOrder Info: [id number] - MGOrder Info: 6-3 - TSHOrder Info: [id number] - T4F Performed By: #### L 506.0400, L500.4100, L500.4050, L501.5200, L501.9520, L100.0100, L501.9985 ####[facility] [address] [place], [address] GFR/1.73 sq M.predicted among non-blacks MDRD (S/P/Bld) [Vol rate/Area] 107 mL/min/{1.73_m2} Normal >60 [facility] Comment on above: Order Comment: Order Date: 02/02/24Order Info: [id number] - CMPOrder Info: [id number] - LIPIDOrder Info: [id number] - MGOrder Info: 3 - TSHOrder Info: 7 - T4F Result Comment: mL/m in/1.73m2 CKD-EPI Creatinine Equation (2020) Performed By: #### L 506.0400, L500.4100, L500.4050, L501.5200, L501.9520, L100.0100, L501.9985 ####[facility] [address] [place], [address] Globulin (S) [Mass/Vol] 2.7 g/dL Normal 2.2-4.2 [facility] Comment on above: Order Comment: Order Date: 02/02/24Order Info: [id number] - CMPOrder Info: [id number] - LIPIDOrder Info: [id number] - MGOrder Info: [id number] - TSHOrder Info: [id number] - T4F Performed By: #### L 506.0400, L500.4100, L500.4050, L501.5200, L501.9520, L100.0100, L501.9985 ####[facility] [address] [place], [address] Glucose [Mass/Vol] 107 mg/dL High 70-99 [facility] Comment on above: Order Comment: Order Date: 02/02/24Order Info: 86-1 - CMPOrder Info: [id number] - LIPIDOrder Info: [id number] - MGOrder Info: 3 - TSHOrder Info: [id number] - T4F Performed By: #### L 506.0400, L500.4100, L500.4050, L501.5200, L501.9520, L100.0100, L501.9985 ####[facility] [address] [place], [address] Potassium [Moles/Vol] 4.2 mmol/L Normal 3.3-5.1 [facility] Comment on above: Order Comment: Order Date: 02/02/24Order Info: 86-1 - CMPOrder Info: [id number] - LIPIDOrder Info: [id number] - MGOrder Info: 3 - TSHOrder Info: [id number] - T4F Performed By: #### L 506.0400, L500.4100, L500.4050, L501.5200, L501.9520, L100.0100, L501.9985 ####[facility] [address] [place], [address] Sodium [Moles/Vol] 137 mmol/L Normal 133-145 [facility] Comment on above: Order Comment: Order Date: 02/02/24Order Info: [id number] - CMPOrder Info: [id number] - LIPIDOrder Info: [id number] - MGOrder Info: 3 - TSHOrder Info: [id number] - T4F Performed By: #### L 506.0400, L500.4100, L500.4050, L501.5200, L501.9520, L100.0100, L501.9985 ####[facility] [address] [place], [address] T PROT 7.3 g/dL Normal 5.9-8.4 [facility] Comment on above: Order Comment: Order Date: 02/02/24Order Info: [id number] - CMPOrder Info: [id number] - LIPIDOrder Info: [id number] - MGOrder Info: 3 - TSHOrder Info: [id number] - T4F Performed By: #### L 506.0400, L500.4100, L500.4050, L501.5200, L501.9520, L100.0100, L501.9985 ####[facility] [address] [place], [address] Urea nitrogen [Mass/Vol] 13 mg/dL Normal 4-19 [facility] Comment on above: Order Comment: Order Date: 02/02/24Order Info: [id number] - CMPOrder Info: [id number] - LIPIDOrder Info: [id number] - MGOrder Info: 63 - TSHOrder Info: 7 - T4F Performed By: #### L 506.0400, L500.4100, L500.4050, L501.5200, L501.9520, L100.0100, L501.9985 ####[facility] [address] [place], [address] Eosinophil percentageOrdered By: Tank Marrufo on 01-29-2025 Eosinophils/100 WBC (Bld) 1.3 % 0-5 [facility] Erythrocyte distribution wid th ratioOrdered By: Tank Marrufo on 01-29-2025 Erythrocyte distribution width (RBC) [Ratio] 12.9 % 11.6-14.6 [facility] Erythrocyte distribution wid th standard deviationOrdered By: Tank Marrufo on 01-29-2025 Erythrocyte distribution width (RBC) [Ratio] 42.6 fl 35.1-43.9 [facility] Glomerular filtration rate ( GFR) estimation/1.73 sq m using serum, plasma, or whole bOrdered By: Tank Marrufo on 01-29-2025 GFR/1.73 sq M.predicted among non-blacks MDRD (S/P/Bld) [Vol rate/Area] 107 mL/min/{1.73_m2} >60 [facility] Comment on above: mL/min/1.73m2 CKD-EP I Creatinine Equation (2020) Hematocrit Auto (Bld) [Volum e fraction]Ordered By: Tank Marrufo on 01-29-2025 Hematocrit (Bld) [Volume fraction] 48.0 % 40-54 [facility] Hemoglobin A1con 01-29-2025 HbA1c (Bld) [Mass fraction] 5.6 % Normal <=5.6 [facility] Comment on above: Order Comment: Order Date: 02/02/24 Order Info: [id number] - A1C Result Comment: Norm al < 5.7 % Prediabetic 5.7 - 6.4 % Diabetic >or= 6.5 % Please note range changes. Performed By: #### L 506.0400, L500.4100, L500.4050, L501.5200, L501.9520, L100.0100, L501.9985 #### [facility] [address] [place], [place], [id number] Hemoglobin A1c percentageOrd ered By: Tank Marrufo on 01-29-2025 HbA1c (Bld) [Mass fraction] 5.6 % <5.7 [facility] Comment on above: Normal < 5.7 % Predi abetic 5.7 - 6.4 % Diabetic >or= 6.5 % Please note range changes. Hemoglobin measurementOrdere d By: Tank Marrufo on 01-29-2025 Hemoglobin (Bld) [Mass/Vol] 16.2 g/dL 13.0-16.5 [facility] Immature granulocytes/100 WB C Auto (Bld)Ordered By: Tank Marrufo on 01-29-2025 Immature granulocytes/100 WBC (Bld) 0.500 % 0.0-0.9 [facility] Comment on above: IG% - Immature Granu locytes (promyelocytes, myelocytes and metamyelocytes) > 1% indicates that a LEFT SHIFT is Present. Ketones Test strip Ql (U)Ord ered By: Tank Marrufo on 01-29-2025 Ketones Ql (U) 50 mg/dl High Negative [facility] LDL calc ser/plasOrdered By: Tank Marrufo on 01-29-2025 Cholesterol in LDL [Mass/Vol] 183 mg/dL [facility] Comment on above: Xqkgqwvuqz=287-742 m g/dL & Higher Friz=575 mg/dL or greater Laboratory - Chemistry and C hemistry - challengeOrdered By: Tank Marrufo on 01-29-2025 AST [Catalytic activity/Vol] 31 U/L <38 [facility] Lipid Profileon 01-29-2025 CHOL:HDL 3.99 Normal [facility] Comment on above: Order Comment: Order Date: 02/02/24Order Info: [id number] - CMPOrder Info: [id number] - LIPIDOrder Info: [id number] - MGOrder Info: [id number] - TSHOrder Info: [id number] - T4F Performed By: #### L 506.0400, L500.4100, L500.4050, L501.5200, L501.9520, L100.0100, L501.9985 ####[facility] [address] [place], [place], [id number] Cholesterol [Mass/Vol] 270 mg/dL High <=200 [facility] Comment on above: Order Comment: Order Date: 02/02/24Order Info: [id number] - CMPOrder Info: [id number] - LIPIDOrder Info: [id number] - MGOrder Info: [id number] - TSHOrder Info: [id number] - T4F Result Comment: Chol esterol level, Desirable <200 mg/dL Borderline high cholesterol 200-239 mg/dL High cholesterol >=240 mg/dL Recommendations of the NCEP Adult Treatment Panel for the following risk-cutoff thresholds for the [place] population. Performed By: #### L 506.0400, L500.4100, L500.4050, L501.5200, L501.9520, L100.0100, L501.9985 ####[facility] [address] [place], [address] Cholesterol in HDL [Mass/Vol] 68 mg/dL Normal [facility] Comment on above: Order Comment: Order Date: 02/02/24Order Info: [id number] - CMPOrder Info: [id number] - LIPIDOrder Info: [id number] - MGOrder Info: [id number] - TSHOrder Info: [id number] - T4F Result Comment: Polina onal Cholesterol Education Program (NCEP) guidelines: <40 mg/dL: Low HDL-cholesterol (major risk factor for CHD) >= 60 mg/dL: High HDL-cholesterol (negative risk factor for CHD) HDL-cholesterol is affected by a number of factors, e.g. smoking, exercise, hormones, sex and age. Performed By: #### L 506.0400, L500.4100, L500.4050, L501.5200, L501.9520, L100.0100, L501.9985 ####[facility] [address] [place], [address] Cholesterol in LDL [Mass/Vol] 183 mg/dL Normal [facility] Comment on above: Order Comment: Order Date: 02/02/24Order Info: [id number] - CMPOrder Info: [id number] - LIPIDOrder Info: [id number] - MGOrder Info: [id number] - TSHOrder Info: [id number] - T4F Result Comment: Bord jjozdm=484-941 mg/dL Higher Aczn=622 mg/dL or greater Performed By: #### L 506.0400, L500.4100, L500.4050, L501.5200, L501.9520, L100.0100, L501.9985 ####[facility] [address] [place], [address] Cholesterol in VLDL [Mass/Vol] 20 mg/dL Normal 5-40 [facility] Comment on above: Order Comment: Order Date: 02/02/24Order Info: [id number] - CMPOrder Info: [id number] - LIPIDOrder Info: [id number] - MGOrder Info: [id number] - TSHOrder Info: [id number] - T4F Performed By: #### L 506.0400, L500.4100, L500.4050, L501.5200, L501.9520, L100.0100, L501.9985 ####[facility] [address] [place], [place], [id number] Triglyceride [Mass/Vol] 98 mg/dL Normal [facility] Comment on above: Order Comment: Order Date: 02/02/24Order Info: [id number] - CMPOrder Info: - LIPIDOrder Info: - MGOrder Info: [id number] - TSHOrder Info: [id number] - T4F Result Comment: The drugs N-Acetylcysteine and Metamizole may falsely depress this assay. Normal range: <150 mg/dL Borderline High: 150-199 mg/dL High: 200-499 mg/dL Very High: >500 mg/dL Performed By: #### L 506.0400, L500.4100, L500.4050, L501.5200, L501.9520, L100.0100, L501.9985 ####[facility] [address] [place], [place], [id number] MCV (mean corpuscular volume ) determinationOrdered By: Tank Marrufo on 01-29-2025 MCV (RBC) [Entitic vol] 90.9 fL 80-94 [facility] Magnesiumon 01-29-2025 Magnesium [Mass/Vol] 2.0 mg/dL Normal 1.5-2.2 [facility] Comment on above: Order Comment: Order Date: 02/02/24Order Info: 07- - CMPOrder Info: [id number] - LIPIDOrder Info: [id number] - MGOrder Info: [id number] - TSHOrder Info: [id number] - T4F Performed By: #### L 506.0400, L500.4100, L500.4050, L501.5200, L501.9520, L100.0100, L501.9985 ####[facility] [address] [place], [address] Magnesium measurement (mass/ volume)Ordered By: Tank Marrufo on 01-29-2025 Magnesium (Unsp spec) [Mass/Vol] 2.0 mg/dL 1.5-2.2 [facility] Mean corpuscular hemoglobin (MCH) determinationOrdered By: Tank Marrufo on 01-29-2025 MCH (RBC) [Entitic mass] 30.7 pg 27.0-32.0 [facility] Mean corpuscular hemoglobin concentration (MCHC) determinationOrdered By: Tank Marrufo on 01-29-2025 MCHC (RBC) [Mass/Vol] 33.8 g/dL 32-36 [facility] Mean platelet volume determi nationOrdered By: Tank Marrufo on 01-29-2025 Platelet mean volume (Bld) [Entitic vol] 10.7 fL 6.2-12.0 [facility] Microscopic analysis of urin e for red blood cells (RBC)Ordered By: Tank Marrufo on 01-29-2025 Microscopic analysis of urine for red blood cells (RBC) 0 SEEN /hpf 0-5 [facility] Monocyte percentageOrdered B y: Tank Marrufo on 01-29-2025 Monocytes/100 WBC (Bld) 9.0 % 0-10 [facility] Mucus LM Ql (Urine sed)Order ed By: Tank Marrufo on 01-29-2025 Mucus Ql (Urine sed) 1+ /hpf [facility] Neutrophil percentageOrdered By: Tank Marrufo on 01-29-2025 Neutrophils/100 WBC (Bld) 59.1 % 47-70 [facility] Nitrite Test strip Ql (U)Ord ered By: Tank Marrufo on 01-29-2025 Nitrite Ql (U) Negative Negative [facility] Nucleated red blood cell per centageOrdered By: Tank Marrufo on 01-29-2025 Nucleated RBC/100 WBC (Bld) [Ratio] 0 % 0-5 [facility] Platelet countOrdered By: Camila Marrufo on 01-29-2025 Platelets (Bld) [#/Vol] 222 10*3/uL 150-450 [facility] Potassium measurement (mass/ volume)Ordered By: Tank Marrufo on 01-29-2025 Potassium (Unsp spec) [Mass/Vol] 4.2 mmol/L 3.3-5.1 [facility] Protein Test strip Ql (U)Ord ered By: Tank Marrufo on 01-29-2025 Protein Ql (U) 15 mg/dl High Negative [facility] RBC Auto (Bld) [#/Vol]Ordere d By: Tank Marrufo on 01-29-2025 RBC (Bld) [#/Vol] 5.28 10*6/uL 4.6-6.2 [facility] Screening total cholesterol/ high density lipoprotein (HDL) cholesterol ratioOrdered By: Tank Marrufo on 01-29-2025 Cholesterol.total/Choles terol in HDL [Mass ratio] 3.99 {ratio} [facility] Serum creatinine measurement (mass/volume)Ordered By: Tank Marrufo on 01-29-2025 Creatinine [Mass/Vol] 0.85 mg/dL 0.70-1.20 [facility] Serum globulin measurementOr dered By: Tank Marrufo on 01-29-2025 Globulin (S) [Mass/Vol] 2.7 g/dL 2.2-4.2 [facility] Serum glucose measurement (m ass/volume)Ordered By: Tank Marrufo on 01-29-2025 Glucose [Mass/Vol] 107 mg/dL High 70-99 [facility] Serum or plasma alanine jasso otransferase (ALT) measurementOrdered By: Tank Marrufo on 01-29-2025 ALT [Catalytic activity/Vol] 37 U/L <47 [facility] Serum or plasma albumin hannah urement (mass/volume)Ordered By: Tank Marrufo on 01-29-2025 Albumin [Mass/Vol] 4.6 g/dL 3.5-5.0 [facility] Serum or plasma albumin/glob ulin mass ratioOrdered By: Tank Marrufo on 01-29-2025 Albumin/Globulin [Mass ratio] 1.7 {ratio} 0.9-2.4 [facility] Serum or plasma alkaline nikita sphatase measurementOrdered By: Tank Marrufo on 01-29-2025 ALP [Catalytic activity/Vol] 43 U/L 40-129 [facility] Serum or plasma calcium hannah urement (mass/volume)Ordered By: Tank Marrufo on 01-29-2025 Calcium [Mass/Vol] 9.4 mg/dL 7.6-11.0 [facility] Serum or plasma cholesterol in HDL measurement (mass/volume)Ordered By: Tank Marrufo on 01-29-2025 Cholesterol in HDL [Mass/Vol] 68 mg/dL >40 [facility] Comment on above: National Cholesterol Education Program (NCEP) guidelines:<40 mg/dL: Low HDL-cholesterol (major risk factor for CHD)>= 60 mg/dL: High HDL-cholesterol (negative risk factor for CHD)HDL-cholesterol is affected by a number of factors, e.g. smoking, exercise, hormones, sex and age. Serum or plasma cholesterol measurement (mass/volume)Ordered By: Tank Marrufo on 01-29-2025 Cholesterol [Mass/Vol] 270 mg/dL High <201 [facility] Comment on above: Cholesterol level, D esirable <200 mg/dLBorderline high cholesterol 200-239 mg/dLHigh cholesterol >=240 mg/dLRecommendations of the NCEP Adult Treatment Panel for the following risk-cutoff thresholds for the [place] population. Serum or plasma urea nitroge n measurement (mass/volume)Ordered By: Tank Marrufo on 01-29-2025 Urea nitrogen [Mass/Vol] 13 mg/dL 4-19 [facility] Sodium levelOrdered By: Tank Marrufo on 01-29-2025 Sodium [Moles/Vol] 137 mmol/L 133-145 [facility] Squamous epithelial cells de tection in urine sediment by light microscopyOrdered By: Tank Marrufo on 01-29-2025 Epithelial cells.squamous LM Ql (Urine sed) 0-5 SEEN /hpf 0-5 [facility] T4 Free Directon 01-29-2025 T4 FREE DIRECT 1.30 ng/dL Normal 0.76-1.46 [facility] Comment on above: Order Comment: Order Date: 02/02/24Order Info: [id number] - CMPOrder Info: [id number] - LIPIDOrder Info: [id number] - MGOrder Info: [id number] - TSHOrder Info: [id number] - T4F Performed By: #### L 506.0400, L500.4100, L500.4050, L501.5200, L501.9520, L100.0100, L501.9985 ####[facility] [address] [place], [place], [phone] T4 freeOrdered By: Tank zamudio on 01-29-2025 Free T4 [Mass/Vol] 1.30 ng/dL 0.76-1.46 [facility] TSH DL <= 0.005 mIU/L QnOrde red By: Tank Marrufo on 01-29-2025 TSH Qn 0.899 uIU/mL 0.300-4.200 [facility] Thyroid Stim Hormone (TSH)on 01-29-2025 TSH 0.899 uIU/mL Normal 0.300-4.200 [facility] Comment on above: Order Comment: Order Date: 02/02/24Order Info: [id number] - CMPOrder Info: - LIPIDOrder Info: - MGOrder Info: [id number] - TSHOrder Info: [id number] - T4F Performed By: #### L 506.0400, L500.4100, L500.4050, L501.5200, L501.9520, L100.0100, L501.9985 ####[facility] [address] [place], [place], [phone] Total proteinOrdered By: Sukhi Marrufo on 01-29-2025 Protein [Mass/Vol] 7.3 g/dL 5.9-8.4 [facility] Triglycerides measurementOrd ered By: Tank Marrufo on 01-29-2025 Triglyceride [Mass/Vol] 98 mg/dL <199 [facility] Comment on above: The drugs N-Acetylcy steine and Metamizole may falsely depress this assay. Normal range: <150 mg/dLBorderline High: 150-199 mg/dLHigh: 200-499 mg/dLVery High: >500 mg/dL Urinalysis, Completeon 01-29 EPI,SQUAMOUS 0-5 SEEN Normal 0-5 [facility] Comment on above: Order Comment: CLEAN CATCH Performed By: #### L 400.0001 #### [facility] [address] [place], [address] Mucus Ql (Urine sed) 1+ /hpf Normal [facility] Comment on above: Order Comment: CLEAN CATCH Performed By: #### L 400.0001 #### [facility] [address] [place], [address] WBC 0-5 SEEN Normal 0-5 [facility] Comment on above: Order Comment: CLEAN CATCH Performed By: #### L 400.0001 #### [facility] [address] [place], [address] BACTERIA 0 SEEN Normal None Seen [facility] Comment on above: Order Comment: CLEAN CATCH Performed By: #### L 400.0001 #### [facility] [address] [place], [address] RBC 0 SEEN Normal 0-5 [facility] Comment on above: Order Comment: CLEAN CATCH Performed By: #### L 400.0001 #### [facility] [address] [place], [address] Urine clarityOrdered By: Sukhi Marrufo on 01-29-2025 Clarity (U) Clear Clear [facility] Urine color determinationOrd ered By: Tank Marrufo on 01-29-2025 Color (U) Yellow Yellow [facility] Urine glucose detectionOrder ed By: Tank Marrufo on 01-29-2025 Glucose Ql (U) Normal mg/dl Normal [facility] Urine leukocyte esterase det ection by dipstickOrdered By: Tank Marrufo on 01-29-2025 Leukocyte esterase Test strip Ql (U) Negative Negative [facility] Urine pHOrdered By: Tank long on 01-29-2025 pH (U) 5.0 [pH] 5.0 - 8.0 [facility] Urine sediment bacteria coun t by microscopy (number/high power field)Ordered By: Tank Marrufo on 01-29-2025 Bacteria LM.HPF (Urine sed) [#/Area] 0 /[HPF] None Seen [facility] Urine specific gravity measu rementOrdered By: Tank Marrufo on 01-29-2025 Specific gravity (U) [Rel density] 1.025 1.002-1.030 [facility] Urine urobilinogen measureme ntOrdered By: Tank Marrufo on 01-29-2025 Urobilinogen Ql (U) Normal mg/dl Normal [facility] White blood cell (WBC) count Ordered By: Tank Marrufo on 01-29-2025 WBC (Bld) [#/Vol] 6.0 10*3/uL 4.4-11.0 [facility] White blood cell countOrdere d By: Tank Marrufo on 01-29-2025 White blood cell count 0-5 SEEN /hpf 0-5 [facility] Urgent Care Visit Reporton 0 12-18-2024 Urgent Care Visit Report [facility] [address], [address] [place] [id number] OFFICE VISIT Date of Service: 12/18/24 MR#: [id number] Acct: [id number] Name: KINGSLEY MURRELL Rep #: [id number] : 1975 Provider: CAMILLA Thao Age/Sex: 49/M Location[place] [facility] Status: Signed Intake Vital Signs 10/18/24 15:25 12/18/24 12:36 Height 6 ft 2 in Weight: 191 lb BMI 24.5 BP 147/96 H 138/84 H Blood Pressure Location Lt brachial Lt brachial Position Sitting Sitting Respiration 16 15 Pulse 87 74 Pulse Source NIBP NIBP Temp 98.0 F Temp Source Oral Pulse Oximetry (%) 98 Oxygen Delivery Method room air Intake Visit Reasons: EAR PAIN Chief Complaint: left ear plugged, off balance Laboratory Apparatus Glass Grinder Required: No Is patient in pain?: No Allergies No Known Allergies Allergy (Verified 12/18/24 12:41) Have you fallen in the past year?: No Nurse's Note: left ear plugged, off balance x 1 week. denies fever, pain. no hx ear washes. 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) Lipoma of back Laceration of left wrist Surgical History History of radiofrequency ablation procedure for cardiac arrhythmia (05/13/99) History of shoulder surgery Family History Father Heart disease Myocardial infarction, Onset Age: 62 Social History Smoking Status: Never smoker alcohol intake: current alcohol intake frequency: a few times a month substance use type: does not use caffeine: No HPI HPI Chief Complaint: left ear plugged, off balance Details: KINGSLEY MURRELL, is a 49 M who presents to the office today for initial evaluation sense of fullness and off balance in the left ear of unknown etiology. No history of trauma or drainage from the same at this time. No complaints of fever, chills, sweats, nausea/vomiting. No jych-dja-bqckpkh products taken to assist. No other associated symptoms and no other alleviating/aggravat ing factors. ROS Const Constitutional: No other (As above) Exam Const General: cooperative, healthy appearing and no acute distress Nutritional Appearance: average body habitus Orientation: alert and awake [facility] Head: normal to inspection Ears: hearing grossly normal bilaterally, external ears normal, TM's normal bilaterally (After cerumen impaction removed from left ear) and EAC's normal (After cerumen impaction removed from left ear) Nose: external nose normal, nares normal, septum normal and no nasal discharge Face and sinus: normal facial exam, sinuses nontender and face symmetric Mouth: oral mucosae normal, lip normal, tongue normal, oropharynx normal and moist mucous membranes Throat: posterior oropharynx normal, tonsils normal, uvula midline and no postnasal drainage Eyes General: appearance normal, both eyes and all related structures Neck Neck: normal visual inspection, full ROM, no lymphadenopathy, no meningeal signs and supple Neck mass: No Thyroid: thyroid normal Lymphatic: no lymphadenopathy noted Resp Effort Inspection: normal respiratory effort and able to speak in complete sentences Cardio Rate: regular rate Pulses: radial pulses present Skin General: no rashes or lesions noted Neuro General: patient alert and patient awake Cognition: normal cognition Speech: speech normal Psych Appearance: grossly normal Mental Status: mental status grossly normal Mood: congruent mood Affect: normal affect Speech and Movement: speech and movement normal Attitude: cooperative Office Procedures Cerumen Removal Procedure BMS Cerumen Removal Procedure Procedure performed by: Enrique Perry Method of removal: loop and irrigation From which ear canal was the cerumen removed: left Amount of Cerumen: large Patient tolerated procedure: well Complications: other Coding Level of Care Code Attention Michael Diagnoses Impacted cerumen, left ear H61.22 Comment [id number], [id number] Assessment and Plan Assessment and Plan (1) Impacted cerumen, left ear: Status: Acute Plan: After above procedure performed, recommend giving 8 to 10 hours to determine if dizziness has resolved. Should symptoms not completely resolve recommend following up with PCP or ENT in the next 2 to 3 days, or ED sooner should symptoms only worsen or any other concerns develop. P (more content not included)... Normal [facility] Cardiology Visit Reporton Cardiology Visit Report [facility] [place] [address] OFFICE VISIT Date of Service: 10/18/24 MR#: [id number] Acct: [id number] Name: KINGSLEY MURRELL Rep #: [id number] : 1975 Provider: LUIZA casas Age/Sex: 49/M Location: [facility] Status: Signed HPI HPI History of Present Illness Details: This is a 49-year-old man who presents to the office today for a cardiovascular follow up visit. 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 He did have a Holter monitor performed in 2013 demonstrating sinus rhythm with sinus arrhythmia noted. He also has a past medical history of hypertension and hyperlipidemia. Patient's event monitor from 12/07/2023 demonstrated normal sinus rhythm, PACs less than 0.1%, and PVC 11%. He denies chest, arm, jaw, or neck discomfort. He states palpitations that are unchanged from previous. He describes this as skipping. He denies bilateral lower extremity edema. He denies claudication. He denies shortness of breath with activity, shortness of breath at rest, orthopnea, or PND. He denies chronic cough. He denies significant, sudden weight gain. He acknowledges occasional lightheadedness. He denies dizziness, near-syncope, or syncope. He denies blood in urine, blood in stool, or epistaxis. He denies fever with chills. He denies myalgia. He acknowledges intermittent fatigue that he attributes to beta-zion therapy. His exercise level has remained stable. Intake Vital Signs 03/27/24 14:19 10/18/24 15:25 Height 6 ft 2 in 6 ft 2 in Weight: 181 lb 191 lb BMI 23.2 24.5 BP 145/90 H 147/96 H Blood Pressure Location Lt brachial Lt brachial Position Sitting Sitting Respiration 16 16 Pulse 75 87 Pulse Source Monitor NIBP Pulse Oximetry (%) 99 Oxygen Delivery Method room air Intake Visit Reasons: 6 M Laboratory Apparatus Glass Grinder Required: No Is patient in pain?: No Allergies No Known Allergies Allergy (Verified 10/18/24 15:28) Medications ???Medication ???Instructions ???Recorded ???Confirmed ???Type lisinopril 20 mg tablet 20 mg PO QDAY 10/18/24 10/18/24 Hi story metoprolol succinate 100 mg 100 mg PO DAILY #90 tabs 10/18/24 10/18/24 Rx tablet,extended release 24 hr Ejection fraction %: 55 Have you fallen in the past year?: No [facility] Medical History Acute bronchitis, unspecified Acute maxillary sinusitis, unspecified URI (upper respiratory infection) Intermittent palpitations Nonrheumatic mitral (valve) prolapse Hyperlipidemia GERD (gastroesophageal reflux disease) Essential hypertension AVNRT (AV cipriano re-entry tachycardia) WPW (Osmes-Eojbrjthe-Xiz te syndrome) Lipoma of back Laceration of left wrist Surgical History History of radiofrequency ablation procedure for cardiac arrhythmia (05/13/99) History of shoulder surgery Family History Father Heart disease Myocardial infarction, Onset Age: 62 Social History Smoking Status: Never smoker alcohol intake: current alcohol intake frequency: a few times a month substance use type: does not use caffeine: No ROS Const Const: Positive for fatigue (Tired here and there. Relates to beta zion); Negative for weakness Eyes Eyes: Negative for change in vision ENT ENT: Negative for dizziness or balance problems Cardio Chest Pain: No Palpitations: Yes (Unchanged from previous) feels like its: skipping Edema: None Muscle aches with walking: None Resp Respiratory: Negative for SOB with activity, SOB at rest or SOB orthopnea SOB lying down GI GI: Negative nausea or heartburn : Negative for hematuria or frequent nighttime urination/ nocturia Musc Musc: Negative for balance problems Skin Skin: Negative non-healing lesions or rash Neuro Neuro: Positive for lightheadedness (Occasionally); Negative for dizziness, near syncope, syncope or weakness Endo Endo: Positive for fatigue (Tired here and there. Relates to beta zion) Allergy Allergy/Immunology: Negative for rash Cardiology Exam Const Appearance: cooperative, healthy appearing, comfortable and no acute distress Nutritional Appearance: average body habitus and well nourished Orientation: alert, awake and oriented x3 Head Head: normal to inspection Ears: hearing grossly normal bilaterally Nose: external nose normal Face and Sinus: face symmetric Mouth: moist mucous membranes Eyes General: appearance normal, both eyes and all related structures Eyelids: eyelids normal EOM: EOM intact bilaterally Neck Neck: normal visual inspection and no JVD (more content not included)... Normal [facility] Cardiology Visit Reporton Cardiology Visit Report [facility] [address] [place] [address] OFFICE VISIT Date of Service: 03/27/24 MR#: [id number] Acct: [id number] Name: KINGSLEY MURRELL Rep #: [id number] : 1975 Provider: LUIZA barahona Age/Sex: 48/M Location: [facility] Status: Signed [facility] History of Present Illness Details: This is a 48-year-old man who presents to the office today for a cardiovascular follow up visit. 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 He did have a Holter monitor performed in 2013 demonstrating sinus rhythm with sinus arrhythmia noted. He also has a past medical history of hypertension and hyperlipidemia. Patient's event monitor from 12/07/2023 demonstrated normal sinus rhythm, PACs less than 0.1%, PVC 11%. From a cardiac standpoint, the patient is doing well. He does acknowledge occasional palpitations-he states this is an abnormal beat. He denies any palpitations, or chest pain. He denies SOB, Orthopnea, and PND. He does not have bleeding issues; no blood in urine, stool or nosebleeds. He does acknowledge a decrease in energy level-after taking metoprolol. He denies myalgias, or claudication. He does not have edema, or sudden weight gain. He denies dizziness, lightheadedness, syncopal or near syncopal episodes, and headaches. He states that his blood pressures at home average 120/80-85. Intake Vital Signs 12/24/23 14:51 03/27/24 14:19 Height 6 ft 2 in 6 ft 2 in Weight: 181 lb BMI 23.2 BP 145/90 H Blood Pressure Location Lt brachial Position Sitting Respiration 16 Pulse 75 Pulse Source Monitor Pulse Oximetry (%) 99 Oxygen Delivery Method room air Intake Visit Reasons: 3 M FU Accompanied by: Self Is patient in pain?: No Allergies No Known Allergies Allergy (Verified 03/27/24 14:25) Medications ???Medication ???Instructions ???Recorded ???Confirmed ???Type lisinopril 10 mg tablet 10 mg PO QDAY 03/27/24 03/27/24 History metoprolol succinate 100 mg 100 mg PO DAILY #30 tabs 03/27/24 03/27/24 Rx tablet,extended release 24 hr Ejection fraction %: 55 PFSH Medical History Acute bronchitis, unspecified Acute maxillary sinusitis, unspecified URI (upper respiratory infection) Intermittent palpitations Nonrheumatic mitral (valve) prolapse Hyperlipidemia GERD (gastroesophageal reflux disease) Essential hypertension AVNRT (AV cipriano re-entry tachycardia) WPW (Thraz-Brdrtwlpb-Sxm te syndrome) Lipoma of back Laceration of left wrist Surgical History History of radiofrequency ablation procedure for cardiac arrhythmia (05/13/99) History of shoulder surgery Family History Father Heart disease Myocardial infarction, Onset Age: 62 Social History Smoking Status: Never smoker alcohol intake: current alcohol intake frequency: a few times a month substance use type: does not use ROS Const Const: Positive for fatigue; Negative for weakness, fever(s), headache(s), chills, frequent falls, weight gain or weight loss Eyes Eyes: Negative for blind spots, loss of peripheral vision, transient loss of vision, blurry vision, change in vision, double vision, floaters or tunnel vision ENT ENT: Negative for headache(s), dizziness, Nosebleed/epistaxis, balance problems or neck pain Cardio Chest Pain: No Palpitations: Yes Edema: None Muscle aches with walking: None Resp Respiratory: Negative for SOB with activity, SOB at rest or SOB orthopnea SOB lying down GI GI: Negative nausea, vomiting, heartburn, bloating, vomiting blood/hematemesis, bright, red blood in stools or black,tarry stools Musc Musc: Negative for muscle aches/ myalgia, muscle weakness, joint pain or balance problems Neuro Neuro: Negative for dizziness, lightheadedness, near syncope, syncope, orthostatic symptoms, frequent falls, headache(s), weakness, blurry vision or double vision Refugio Hematologic/Lymphati c: Negative for easy bleeding or easy bruising Endo Endo: Positive for fatigue Cardiology Exam Const Appearance: cooperative, healthy appearing, comfortable and no acute distress Nutritional Appearance: average body habitus and well nourished Orientation: alert, awake and oriented x3 Head Head: normal to inspection Ears: hearing grossly normal bilaterally Nose: external nose normal Face and Sinus: face symmetric Mouth: moist mucous membranes Eyes General: appearance normal, both eyes and all related structures Eyelids: eyelids normal EOM: EOM intact bilaterally Neck (more content not included)... Normal [facility] Echo Complete W/ Contraston 02-14-2024 Echo Complete W/ Contrast [facility] [address] [place] [address] Echo Complete W/ Contrast 02/14/24 1310 MR#: [id number] Acct: [id number] Name: KINGSLEY MURRELL Rep #: [id number] : 1975 48 From: Reinaldo Morley MD Attending Dr: Kassie Frias NP-C Status: KAY PARRISH Ordering Dr: Kassie Frias NP PIPE JOINTS SUPERVISOR-C Date: 02/14/24 Location: [facility] Sex: M C Admitted: Reason For Study: MVP Procedure This was a 2D Doppler, Color Flow transthoracic echocardiogram. The study was technically difficult. Contrast injection was performed. Exam performed in department. Left Ventricle Normal LV size. Left ventricular systolic function is normal. The left ventricular ejection fraction is 55 %. No regional wall motion abnormalities noted. Right Ventricle Normal RV size. Normal systolic function. Mitral Valve Bileaflet diffuse mitral valve thickening. Mild (1+) eccentric mitral valve insufficiency. Pulmonic Valve Normal pulmonic valve. Great Vessels Normal aortic root. The pulmonary artery is normal size. Normal inferior vena cava. Pericardium/Pleural No pericardial effusion. Medication 22 gauge I.V. with prn adaptor inserted into right arm. Diluted definity 2.5ml given slow IV push to enhance endocardial definition. Performed a rapid injection of agitated mix of 9 cc saline and 1cc air to assess for atrial septal defect. MMode/2D Measurements Calculations LVIDd: 4.8 cm IVSd: 0.96 cm Ao root diam: 2.9 cm LVIDs: 3.6 cm LVPWd: 1.3 cm FS: 25.3 % _ LAV(MOD-sp4): 31.3 ml SV(MOD-sp4): 72.7 ml LVAd ap4: 36.3 cm2 LVLd ap4: 8.4 cm EDV(MOD-sp4): 129.0 ml EDV(sp4-el): 132.4 ml LVAs ap4: 21.4 cm2 LVLs ap4: 6.9 cm ESV(MOD-sp4): 56.3 ml ESV(sp4-el): 56.7 ml EF(MOD-sp4): 56.4 % EF(sp4-el): 57.2 % _ SV(sp4-el): 75.7 ml LA dimension(2D): 3.3 cm LA A4 area: 14.0 cm2 _ TAPSE: 2.5 cm RA A4 area: 11.6 cm2 Time Measurements MV dec time: 0.13 sec Doppler Measurements Calculations MV E max kole: 81.5 cm/sec Lat Peak E' Kole: 16.9 cm/sec Med Peak E' Kole: 13.7 cm/sec MV A max kole: 53.8 cm/sec E/E' lat: 4.8 E/E' med: 5.9 MV E/A: 1.5 _ MV V2 max: 97.3 cm/sec Ao V2 max: 127.6 cm/sec MV max P.8 mmHg MV dec slope: 684.4 cm/sec2 Ao max P.5 mmHg MV V2 mean: 61.7 cm/sec Ao V2 mean: 92.6 cm/sec MV mean P.7 mmHg Ao mean P.9 mmHg MV V2 VTI: 22.5 cm Ao V2 VTI: 29.5 cm AV (velocity ratio): 0.82 _ LV V1 max: 114.0 cm/sec LV V1 max P.2 mmHg LV V1 mean P.8 mmHg LV V1 mean: 78.1 cm/sec LV V1 VTI: 24.2 cm ECHO/Echo Complete W/ Contrast Interpretation Summary Normal LV size. Left ventricular systolic function is normal. The left ventricular ejection fraction is 55 %. Contrast injection was performed. Ordering Physician: Kassie Frias Referring Physician: Kassie Frias Performed By: Jannette Silva RCS 02/14/24 1539 Date Reinaldo Morley MD CC: LUZIA Frias; Dr. Tank Marrufo MD Date Dictated: 02/14/24 1310 Date Transcribed: 02/14/[address] Reporter: Signed Normal [facility] Laboratory - Chemistry and C hemistry - challengeOrdered By: Kassie Frias on 12-17-2023 Magnesium [Mass/Vol] 2.3 mg/dL 1.6-2.6 [facility] Serum or plasma thyroid stim ulating hormone (TSH) measurement (units/volume)Ordered By: Tank Marrufo on 12-07-2023 TSH Qn 1.19 uIU/mL 0.358-3.74 [facility] Absolute lymphocyte countOrd ered By: Ramirez Ku on 12-06-2023 Lymphocytes Auto (Unsp spec) [#/Vol] 2.91 10*3/uL 0.83-4.51 [facility] Automated lymphocyte count a s percentage of total leukocytesOrdered By: Ramirez Ku on 12-06-2023 Lymphocytes/100 WBC Auto (Unsp spec) 33.3 % 19-41 [facility] Basophil percentageOrdered B y: Ramirez Ku on 12-06-2023 Basophils/100 WBC (Bld) 0.8 % 0-1 [facility] Chloride [Moles/Vol] 102 mmol/L 98-107 [facility] Eosinophils/100 WBC (Bld) 2.3 % 0-5 [facility] Glucose [Mass/Vol] 123 mg/dL 74-106 [facility] Comment on above: Fasting Glucose resu lt from 100 to 125 mg/dL suggests IMPAIRED HOMEOSTASIS per A.D.A. criteria. Hemoglobin (Bld) [Mass/Vol] 15.3 g/dL 13.0-16.5 [facility] Monocytes/100 WBC (Bld) 7.6 % 0-10 [facility] Neutrophils (Bld) [#/Vol] 4.9 10*3/uL 2.0-7.7 [facility] Neutrophils/100 WBC (Bld) 55.5 % 47-70 [facility] Potassium [Moles/Vol] 3.7 mmol/L 3.5-5.1 [facility] Sodium [Moles/Vol] 136 mmol/L 136-145 [facility] WBC (Bld) [#/Vol] 8.7 10*3/uL 4.4-11.0 [facility] Determination of erythrocyte mean corpuscular volume (MCV)Ordered By: Ramirez Ku on 12-06-2023 MCV (RBC) [Entitic vol] 88.6 fL 80-94 [facility] Erythrocyte distribution wid th ratioOrdered By: Ramirez Ku on 12-06-2023 Erythrocyte distribution width (RBC) [Ratio] 12.6 % 11.6-14.6 [facility] Erythrocyte distribution wid th standard deviationOrdered By: Ramirez Ku on 12-06-2023 Erythrocyte distribution width (RBC) [Entitic vol] 41.1 fL 35.1-43.9 [facility] Hematocrit Auto (Bld) [Volum e fraction]Ordered By: Ramirez Ku on 12-06-2023 Hematocrit (Bld) [Volume fraction] 45.3 % 40-54 [facility] Immature granulocytes/100 WB C Auto (Bld)Ordered By: Ramirez Ku on 12-06-2023 Immature granulocytes/100 WBC (Bld) 0.500 % 0.0-0.9 [facility] Comment on above: IG% - Immature Granu locytes (promyelocytes, myelocytes and metamyelocytes) > 1% indicates that a LEFT SHIFT is Present. Laboratory - Chemistry and C hemistry - challengeOrdered By: Ramirez Ku on 12-06-2023 CO2 [Moles/Vol] 27.0 mmol/L 21.0-32.0 [facility] Urea nitrogen/Creatinine [Mass ratio] 17.5 mg/mg 10-20 [facility] Laboratory - Hematology and Cell countsOrdered By: Ramirez Ku on 12-06-2023 MCH (RBC) [Entitic mass] 29.9 pg 27.0-32.0 [facility] MCHC (RBC) [Mass/Vol] 33.8 g/dL 32-36 [facility] Nucleated RBC/100 WBC (Bld) [Ratio] 0 % 0-5 [facility] Platelet mean volume (Bld) [Entitic vol] 9.3 fL 6.2-12.0 [facility] Platelets (Bld) [#/Vol] 313 10*3/uL 150-450 [facility] No Panel InformationOrdered By: Ramirez Ku on 12-06-2023 Estimated Creatinine Clearance Calc 114.17 ml/min [facility] Estimated GFR (MDRD) Amer 113 mL/min >60 [facility] Comment on above: GFR Calc Estimated GFR (MDRD) Non-Af Amer 94 mL/min >60 [facility] Comment on above: Non- GFR Calc Troponin I High Sensitivity < 3 pg/mL 3.0-78.0 [facility] Comment on above: Please Note: New Mary t Units and Gender Specific Reference Ranges. For more information see Policy Stat Procedure [place] High Sensitivity Troponin (TNIH) and attachments. RBC Auto (Bld) [#/Vol]Ordere d By: Ramirez Ku on 12-06-2023 RBC (Bld) [#/Vol] 5.11 10*6/uL 4.6-6.2 [facility] Serum or plasma calcium hannah urement (mass/volume)Ordered By: Ramirez Ku on 12-06-2023 Calcium [Mass/Vol] 9.1 mg/dL 8.5-10.1 [facility] Serum or plasma creatinine m easurement (mass/volume)Ordered By: Ramirez Ku on 12-06-2023 Creatinine [Mass/Vol] 0.92 mg/dL 0.70-1.30 [facility] Comment on above: The validity of the calculated GFR & GFRAA in patients over 70 years has not been determined. Clinical correlation is essential. Serum or plasma urea nitroge n measurement (mass/volume)Ordered By: Ramirez Ku on 12-06-2023 Urea nitrogen [Mass/Vol] 16 mg/dL 7-18 [facility] Thin prep Papanicolaou smear with manual screeningOrdered By: Ramirez Ku on 12-06-2023 Thin prep Papanicolaou smear with manual screening 7 5-[address] [facility] [address] BRAIN WO IVCONon 09-12-[address] BRAIN WO IVCON * * *Final Report* * * DATE OF EXAM: Sep 12 2018 4:29PM [facility] 0504 - CT BRAIN WO IVCON / PROCEDURE REASON: brain * * * * Physician Interpretation * * * * EXAMINATION: CT BRAIN WO IVCON CLINICAL HISTORY: Double vision TECHNIQUE: Serial axial images without IV contrast were obtained from the vertex to the foramen magnum. MQ: CTBWO_3 CT Dose-Length Product (DLP): 784 mGy*cm CT Dose Reduction Employed: No dose reduction techniques were required COMPARISON: None. RESULT: Post-operative change: None. Acute change: No evidence of an acute infarct or other acute parenchymal process. Hemorrhage: No evidence of acute intracranial hemorrhage. Mass Lesion / Mass Effect: There is no evidence of an intracranial mass or extraaxial fluid collection. No significant mass effect. Chronic change: None apparent. Parenchyma: There is no significant volume loss. The brain parenchyma is otherwise within normal limits for age. Ventricles: The ventricles are within normal limits of size and configuration for age. Paranasal sinuses and skull base: Mild mucosal thickening in the right posterior ethmoid air cells. The skull base and imaged soft tissues are unremarkable. IMPRESSION: No acute intracranial process by CT. No acute intracranial hemorrhage. [address] Reporter: PSCB Transcribe Date/Time: Sep 12 2018 5:22P Dictated by : MELVIN AIKEN MD This examination was interpreted and the report reviewed and electronically signed by: MELVIN AIKEN MD on Sep 12 2018 5:23PM EST [id number] Normal [facility] PROGRESSon 09-12-2018 Protein mass conc HNO ID: [id number] Author: Niharika Stevens Rt Service: (none) Author Type: (none) Type: Progress Notes Filed: 09/12/2018 5:10 PM Note Text: Radiology Service Progress Note PATIENT NAME: Kingsley Murrell DATE OF SERVICE: September 12, 2018 TIME: 5:10 PM PATIENT IDENTITY VERIFICATION COMPLETED USING TWO (2) METHODS: Patient confirmed name verbally and Date of . PATIENT GENDER DATA: Female. status: : No status: NO. PATIENT RELEVANT IMPLANT DATA REVIEWED: Yes RADIOLOGY DEPARTMENT: CT; Exam(s) Completed: Brain PERIPHERAL IV DATA: Not applicable SIGNED BY: Niharika Stevens Rt September 12, 2018 5:10 PM Normal [facility] Vital Signs Date Time Vital Sign Value Performing Clinician Mirta naik 02-05-2025 13:10-0400 Diastolic blood pressure 94 mm[Hg] Dr. Tank Marrufo MD Work Phone: [facility] 02-05-2025 13:10-0400 Heart rate 69 /min Dr. Tank Marrufo MD Work Phone: [facility] 02-05-2025 13:10-0400 Respiratory rate 16 /min Dr. Tank Marrufo MD Work Phone: [facility] 02-05-2025 13:10-0400 SaO2% (BldA) [Mass fraction] 98 % Dr. Tank Marrufo MD Work Phone: [facility] 02-05-2025 13:10-0400 Systolic blood pressure 145 mm[Hg] Dr. Tank Marrufo MD Work Phone: 2(195)439-922958 [place] [address] 02-05-2025 10:32-0400 Body height 187.[address] Tank Marrufo MD Work Phone: 5(928)992-352889 [address] 02-05-2025 10:32-0400 Body mass index (BMI) [Ratio] 22.1 kg/m2 Dr. Tank Marrufo MD Work Phone: 7(695)427-641558 [place] [address] 02-05-2025 10:32-0400 Body temperature 98.9 [degF] Dr. Tank Marrufo MD Work Phone: 1(525)030-145158 [place] [address] 02-05-2025 10:32-0400 Body weight 78.[address] Tank Marrufo MD Work Phone: [facility] 12-18-2024 12:36-0400 Body temperature 98 [degF] Dr. Tank Marrufo MD Work Phone: 8(911)002-973658 [place] [address] 12-18-2024 12:36-0400 Diastolic blood pressure 84 mm[Hg] Dr. Tank Marrufo MD Work Phone: [facility] 12-18-2024 12:36-0400 Heart rate 74 /min Dr. Tank Marrufo MD Work Phone: 4(416)148-847258 [place] [address] 12-18-2024 12:36-0400 Respiratory rate 15 /min Dr. Tank Marrufo MD Work Phone: [facility] 12-18-2024 12:36-0400 SaO2% (BldA) [Mass fraction] 98 % Dr. Tank Marrufo MD Work Phone: 0(448)088-172489 [address] 12-18-2024 12:36-0400 Systolic blood pressure 138 mm[Hg] Dr. Tank Marrufo MD Work Phone: 9(340)010-417558 [place] [address] 10-18-2024 15:25-0500 Body height 187.[address] Tank Marrufo MD Work Phone: 8(411)015-555117 [place] [address] 10-18-2024 15:25-0500 Body mass index (BMI) [Ratio] 24.5 kg/m2 Dr. Tank Marrufo MD Work Phone: 4(288)135-330258 [place] [address] 10-18-2024 15:25-0500 Body weight 86.[address] Tank Marrufo MD Work Phone: 1(719)322-266858 [place] [address] 10-18-2024 15:25-0500 Diastolic blood pressure 96 mm[Hg] Dr. Tank Marrufo MD Work Phone: 7(167)996-601158 [place] [address] 10-18-2024 15:25-0500 Heart rate 87 /min Dr. Tank Marrufo MD Work Phone: 3(677)110-546058 [place] [address] 10-18-2024 15:25-0500 Respiratory rate 16 /min Dr. Tank Marrufo MD Work Phone: 0(588)249-703958 [place] [address] 10-18-2024 15:25-0500 Systolic blood pressure 147 mm[Hg] Dr. Tank Marrufo MD Work Phone: 3(992)764-202558 [place] [address] 12-06-2023 20:00-0400 Body temperature 98.2 [degF] MD Tank DU [facility] 12-06-2023 20:00-0400 Diastolic blood pressure 69 mm[Hg] MD Tank [facility] 12-06-2023 20:00-0400 Heart rate 87 /min MD Tank DU [facility] 12-06-2023 20:00-0400 Respiratory rate 16 /min MD Tank Marrufo [facility] 12-06-2023 20:00-0400 SaO2% (BldA) [Mass fraction] 99 % MD Tank Marru[facility] 12-06-2023 20:00-0400 Systolic blood pressure 136 mm[Hg] MD Tank [facility] 12-06-2023 18:10-0400 Body height 187.96 cm MD Tank Marrufo [facility] 12-06-2023 18:10-0400 Body mass index (BMI) [Ratio] 23.6 kg/m2 MD Tank Marru[facility] 12-06-2023 18:10-0400 Body weight 83.41 kg MD Tank Marrufo [facility] 11-23-2023 15:44-0400 Body mass index (BMI) [Ratio] 23.7 kg/m2 MD Tank Marrufo [facility] 11-23-2023 15:44-0400 Body temperature 98.7 [degF] MD Tank Marrufo [facility] 11-23-2023 15:44-0400 Body weight 83.91 kg MD Tank Marrufo [facility] 11-23-2023 15:44-0400 Diastolic blood pressure 96 mm[Hg] MD Tank Marru[facility] 11-23-2023 15:44-0400 Heart rate 88 /min MD Tank Marrufo [facility] 11-23-2023 15:44-0400 Respiratory rate 16 /min MD Tank Marrufo [facility] 11-23-2023 15:44-0400 SaO2% (BldA) [Mass fraction] 97 % MD Tank [facility] 11-23-2023 15:44-0400 Systolic blood pressure 138 mm[Hg] MD Tank [facility] 10-18-2023 08:13-0500 Body mass index (BMI) [Ratio] 23.7 kg/m2 MD Tank [facility] 10-18-2023 08:13-0500 Body weight 83.91 kg MD Tank Marrufo [facility] 10-18-2023 08:13-0500 Diastolic blood pressure 86 mm[Hg] MD Tank [facility] 10-18-2023 08:13-0500 Heart rate 79 /min MD Tank Marrufo [facility] 10-18-2023 08:13-0500 Respiratory rate 17 /min MD Tank Marrufo [facility] 10-18-2023 08:13-0500 SaO2% (BldA) [Mass fraction] 99 % MD Tank DU [facility] 10-18-2023 08:13-0500 Systolic blood pressure 125 mm[Hg] MD Tank [facility] Encounters Encounter Date Encounter Type Care Provider Facility Start: 02-05-2025 End: 02-05-2025 Emergency department patient visit Dr. Tank Marrufo MD Work Phone: -Emergency Department Work Phone: Start: 02-05-2025 ambulatory Tank Marrufo Facilit y:[facility] Start: 01-29-2025 End: 01-29-[address] Tank Marrufo MD Work Phone: [facility] Work Phone: Start: 01-29-2025 End: 01-29-[address] Tank Marrufo MD -[facility] Work Phone: Start: 01-29-2025 End: 01-29-2025 ambulatory Tank Marrufo Facility:[facility] Start: 12-18-2024 End: 12-18-2024 Patient encounter procedure Enrique Perry PA -[facility] Work Phone: Start: 12-18-2024 End: 12-18-2024 ambulatory Tank Marrufo Facility:[facility] Start: 11-13-2024 Non-patient / Non-visit Dr. Diogo NIX -[facility] Work Phone: Start: 11-13-2024 End: 11-13-[address] Tank Marrufo MD Work Phone: [facility] Work Phone: Start: 11-13-2024 End: 11-13-2024 Patient encounter procedure Tank JARRETT -Pulmonary Services/Neurology Work Phone: Start: 11-13-2024 End: 11-13-2024 ambulatory Tank Marrufo Facility:[facility] Start: 10-18-2024 End: 10-18-2024 Patient encounter procedure Tank Jose NP-C -[facility] Work Phone: Start: 10-18-2024 End: 10-18-2024 ambulatory Tank Marrufo Facility:[facility] Start: 03-27-2024 End: 03-27-2024 ambulatory Tank Marrufo Facility:[facility] Start: 02-14-2024 ambulatory Tank Brodie Rothmanmercedes Facilit y:[facility] Start: 02-14-2024 ambulatory Kassie Frias [employer] SUPERVISOR Facili ty:[facility] Start: 02-14-2024 End: 02-14-2024 ambulatory Kassie Frias NP Facility:[facility] Start: 12-17-2023 End: 12-17-2023 ambulatory MD Tank DU [facility] Work Phone: Start: 12-17-2023 End: 12-17-2023 Patient encounter procedure MD Tank DU [facility]-Laboratory Work Phone: Start: 12-07-2023 End: 12-07-2023 ambulatory MD Tank DU [facility] Work Phone: Start: 12-07-2023 End: 12-07-2023 Patient encounter procedure MD Tank DU [facility]-Laboratory, [facility] Start: 12-06-2023 End: 12-06-2023 Emergency department patient visit MD Tnak DU [facility]-Emergency Department Work Phone: Start: 11-23-2023 End: 11-23-2023 Patient encounter procedure MD Tank DU [facility] Work Phone: Start: 10-18-2023 End: 10-18-2023 Patient encounter procedure MD Tank DU [facility] Work Phone: Start: 09-12-2018 End: 09-12-2018 Patient encounter procedure ISAIAS CARRILLO [facility] [place] Procedures Date Procedure Procedure Detail Performing Clinician Start: 02-05-2025 Computed tomography of abdomen and pelvis with intravenous contrast Dr. Tank Marrufo MD Work Phone: Start: 02-05-[address] Tank Marrufo MD Work Phone: Start: 02-05-2025 Urnls dip stick/tabl et reagent auto microscopy Dr. Tank Marrufo MD Work Phone: Start: 01-29-2025 Urnls dip stick/tabl et reagent auto microscopy Dr. Tank Marrufo MD Work Phone: Plan of Treatment Date Care Activity Detail Author Start: 12-06-2023 [facility] Ambulatory ECG [facility] Patient Education [facility] Work Phone: Patient referral [facility] Work Phone: Payers Date Payer Category Payer Self-pay [id number] 2023 Unknown [id number] Self-pay SELF PAY INSURANCE . [id number] Unknown [id number] 2.16.8 [id number] Unknown [id number] 2.16.8 [id number] Unknown [id number] 2.16.8 [id number] Unknown [id number] 2.16.8 [id number] Unknown [id number] 2.16.8 [id number] Unknown [id number] 2.16.8 [id number] Unknown [id number] 2.16.8 [id number] Unknown [id number] 2.16.8 [id number] Unknown [id number] 2.16.8 [id number] Unknown [id number] 2.16.8 [id number] Unknown [id number] [id number] Social History Date Type Detail Facility Start: 12-06-2023 Tobacco smoking stat us MTIS Unknown if ever smoked [facility] Start: 1975 Sex Assigned At Male W [facility] Start: 10-18-2024 End: 02-05-2025 Tobacco smoking status MTIS Never smoked tobacco (finding) [facility] Start: 11-16-2024 Sex Male (finding) [facility] Mental Status Date Assessment Result Facility 12-06-2023 Cognitive function Voice/Name [facility] Work Phone: Discharge summary 02-05-2025 Note Date & Type Note Facility 02-05-2025 Discharge summary [facility] Radiology Diagnostic study note 02-05-2025 Note Date & Type Note Facility 02-05-2025 Radiology Diagnostic study note [facility] Imaging Services [address] [place] [id number] Abdomen/Pelvis W IV Cont ONLY MR#: [id number] Acct: [id number] Name: KINGSLEY MURRELL Rep #: [id number] : 1975 M 49 From: Pet er Peer DO PCP: Dr. Tank Marrufo MD Status: RE G ER Study:Abdomen/Pelvis W IV Cont ONLY Date of E xam: 02/05/25 Exam# [id number] Ordering Dr: Ortega Jaimes MD PROCEDURE: ABDOMEN/PELVIS W IV CONT ONLY N/A REASON FOR EXAM: PAIN TECHNIQUE: Abdomen and pelvis CT with intravenous contrast. Coronal and Sagittal reconstruction series were provided. PATIENT PREPARATION: Per protocol ORAL CONTRAST TYPE: None. AMOUNT: 0 mL CONTRAST: Isovue-300 VOLUME: 100 mL One or more dose reduction techniques were used (e.g., Automated exposure control, adjustment of the mA and/or kV according to patient size, use of iterative reconstruction technique. RADIATION DOSE SUMMARY: CTDlvol: 9.97 and 10.57 mGy DLP: 637.49 mGycm COMPARISON: None. FINDINGS: Lung bases: Clear The liver, gallbladder, spleen, pancreas, adrenals and kidneys are unremarkable. Bladder: Iqbd-zn-ypudmvoc distention. Reproductive Organs: Unremarkable Bowel: Oral caliber in appearance. Appendix: Inflammatory process identified the lower quadrant Lymph nodes: No adenopathy. Vasculature: Normal, no plaque. Peritoneum / Retroperitoneum: No free air or free fluid Bones: No aggressive bone lesions CT/Abdomen/Pelvis W IV Cont ONLY IMPRESSION: No acute process detected. Reading [facility] CC: Dr. Ortega Jaimes MD; Dr. Tank Marrufo MD ~ [address] Reporter: Signed [facility] Evaluation note 10-18-2024 Note Date & Type Note Facility 10-18-2024 Evaluation note Diagnosis Onset Date Resolution Essential hypertension chronic Fe bruary 2024 3:23pm Hyperlipidemia chronic September 302024 3:23pm Intermittent palpitations chronic October 18 025 3:23pm Nonrheumatic mitral (valve) prolapse chronic October 18, 2024 3:23pm WPW (Crkzo-Etvnwritc-Umqkz syndrome) chronic October 18, 2 025 3:23pm [facility] Work Phone: Evaluation note 10-18-2024 Note Date & Type Note Facility 10-18-2024 Evaluation note Diagnosis Onset Date Resolution Essential hypertension chronic Fe bruary 2024 3:23pm Hyperlipidemia chronic September 302024 3:23pm Intermittent palpitations chronic October 18, 2 025 3:23pm Nonrheumatic mitral (valve) prolapse chronic October 18, 2024 3:23pm WPW (Tufep-Sslrtdagj-Qupcj syndrome) chronic October 18, 2 025 3:23pm Impacted cerumen, left ear acute December 18, 2024 12:30pm [facility] Work Phone: Discharge summary Note Date & Type Note Facility Discharge summary Note Date/Time February 05, 2025 1:09p m [facility] Medical Records Department [address] [place] [address] Emergency Department Summary 02/05/25 MR#: [id number] Acct: [id number] Name: KINGSLEY MURRELL Rep #:[id number] : 1975 49 From: Ortega Jaimes MD PCP: Dr. Tank Marrufo MD Status:RE G ER Location: ED HPI HPI - GI History of Present Illness Chief Complaint: Abd Pain Narrative Narrative: 49-year-old male past medical history of prediabetes, PVCs, on a beta-zion, presents with abdominal pain that has had for about 2 weeks. He states he feelsbloated and has had decreased appetite. He states he went to his primary care provider and had large ketones in his urine, check them today and there were only trace amounts. He denies any fevers or chills, no nausea or vomiting. He states that loose stool ever since he started a beta-zion. Of note, he went to urgent care today and given his symptoms, sent him for further workup for hisabdominal pain and bloating with decreased appetite. He denies any exacerbatingor alleviating factors. No dysuria or hematuria. Is having pain on palpation of his suprapubic area to right lower quadrant. 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) Lipoma of back Laceration of left wrist Home Medications ?Medication ?Instructions ?Recorded ?Last Taken ?Type lisinopril 20 mg tablet 20 mg PO QDAY 10/18/2402/05 History metoprolol succinate 100 mg 100 mg PO DAILY #90 tabs 0 11/23/24 02/05/25 Rx tablet,extended release 24 hr fluticasone propionate 50 1 spray intranasal DAILY PRN 02/05/25 02/01/25 History mcg/actuation nasal allergies spray,suspension Allergy/AdvReac Type Severity Reaction Status Date / Time No Known Allergies Allergy Verified 02/05/25 10:32 Family History Father Heart disease Myocardial infarction, Onset Age: 62 Surgical History History of radiofrequency ablation procedure for cardiac arrhythmia (05/13/99) History of shoulder surgery Social History Smoking Status: Never smoker alcohol intake: current alcohol intake frequency: a few times a month substance use type: does not use caffeine: No ROS ROS ED ROS Narrative Review of systems is positive for abdominal pain, decreased appetite, abdominal bloating. Chronic loose stool. No fevers or chills. No nausea or vomiting. No dysuria or hematuria. No exacerbating or alleviating factors. No prior abdominal surgeries. EXAM Physical Exam Narrative Exam Narrative: Afebrile. Vital signs noted. Nontoxic-appearing. Cardiovascular examination feels a regular rate and rhythm. Lungs are clear to auscultation bilaterally. The abdomen is soft with mild tenderness to palpation in the suprapubic to rightlower quadrant area. No guarding or rebound. Positive bowel sounds. Neurological examination nonfocal, nonlateralizing. Able to ambulate to the restroom independently. Const Vital Signs: 02/05/25 10:32 Temperature 98.9 F Temperature Source Oral Pulse Rate 87 Respiratory Rate 16 Blood Pressure 161/98 H Blood Pressure Mean 119 Pulse Ox 100 Oxygen Delivery Method Room Air MDM MDM MDM Narrative Medical decision making narrative: Differential diagnosis includes but not limited to acute appendicitis versus diverticulitis versus cystitis versus pyelonephritis versus ureterolithiasis. History and physical does not really support ureterolithiasis. CBC, BMP, and UAwill be obtained as well as CT imaging. I reviewed his laboratory work and he has normal white count of 8.7 with hemoglobin 16.2, hematocrit 47.8, platelet count 246. Glucose slightly elevatedat 116 with normal anion gap of 11, normal sodium and potassium. Urinalysis negative for ketones, negative for infection. I do not feel antibiotics are indicated. I reviewed the radiology report and there is no evidence of an acuteprocess according to the impression. I did discuss this directly with the radiologist who read it as there may have been typographical errors. He states that there is no evidence of inflammation around the appendix in the lower quadrant. Upon repeat examination, he is resting comfortably. I had discussed the patient with the [facility] who was concerned about AAA. As there is no evidence of a leaking abdominal aortic aneurysm, I think he is having more nonspecific abdominal draped. I feel he can be discharged safely home with follow-up. Return instructions to the emergency department were reviewed. Disposition is discharged home in stable condition. History & Record Review Discussion w/independent historian: Patient Additional record(s) reviewed:: Prior ED visit (Seen last year for heart palpitations) Lab Data Attestation: I reviewed the patient's lab results. Labs: Laboratory Results - last 24 hr 02/05/25 11:15 WBC 8.7 RBC 5.22 Hgb 16.2 Hct 47.8 MCV 91.6 MCH 31.0 MCHC 33.9 RDW Std Deviation 43.4 RDW Coeff of Tamie 12.8 Plt Count 246 MPV 9.5 Immature Gran % (Auto) 0.600 Neut % (Auto) 79.8 H Lymph % (Auto) 12.0 L Cook % (Auto) 6.7 Eos % (Auto) 0.3 Baso % (Auto) 0.6 Absolute Neuts (auto) 6.9 Absolute Lymphs (auto) 1.04 Nucleated RBC % 0 Sodium 137 Potassium 4.6 Chloride 100 Carbon Dioxide 26.5 Anion Gap 11 BUN 13 Creatinine 0.91 Estim Creat Clear Calc 108.99 Est GFR (MDRD) Non-Af 103 BUN/Creatinine Ratio 13.7 Glucose 116 H Calcium 9.5 Urine Color Yellow Urine Clarity Clear Urine pH 6.5 Ur Specific Rio 1.005 Urine Protein Negative Urine Glucose (UA) Normal Urine Ketones Negative Urine Occult Blood Negative Urine Nitrite Negative Urine Bilirubin Negative Urine Urobilinogen Normal Ur Leukocyte Esterase Negative Urine RBC 0 SEEN Urine WBC 0 SEEN Ur Squamous Epith Cells 0 SEEN Urine Bacteria 0 SEEN Urine Mucus 0 SEEN Radiography Diagnostic Testing: Clinical Impression(s) from Imaging Studies Abdomen/Pelvis CT 02/05/25 11:45 IMPRESSION: No acute process detected. Reading [facility] Discharge Plan Triage Chief Complaint: Abd Pain ED Provider: Ortega Jaimes Dx/Rx/DC Orders Clinical Impression: Abdominal pain, Abdominal bloating Instructions: ED Abdominal Pain Unkn Cause Male... Prescriptions: No Action lisinopril 20 mg tablet 20 mg PO QDAY fluticasone propionate 50 mcg/actuation spray,suspension 1 spray INTRANASAL DAILY PRN (Reason: allergies) metoprolol succinate 100 mg tablet extended release 24 hr 100 mg PO DAILY Qty: 90 3RF Primary Care Provider: Tank Marrufo Referrals: Tank Marrufo MD [Primary Care Provider] - 3-5 Days if not improving Activity Restrictions/Additional Instructions: Return with increased abdominal pain, nausea and vomiting, new or worsening symptoms. Print Language: Sri Lankan Disposition Disposition: Home, Self Care What to do if you have Problems For any increased pain, shortness of breath, bleeding, nausea or vomiting, chestpain, or any unexpected problems, contact your Primary Care Provider. Call [facility] ([phone]) or report to the closest Emergency Room. Call 911 if necessary. 02/05/25 1309 <Electronically signed by Ortega Jaimes MD> Cosigner Signature (if applicable): CC: Dr. Tank Marrufo MD ~ Signed [facility] Work Phone: Evaluation note Note Date & Type Note Facility Evaluation note Diagnosis Onset Date Lipoma of back acute [facility] Work Phone: Hospital Discharge instructions Note Date & Type Note Facility Hospital Discharge instructions Additional Instructions Plenty of fluids. these are premature ventricular contractions or PVCs. This should resolve and go away on her own. They normally do not need to be treated. Follow-up with your doctor or referral manager as needed. [facility] Work Phone: Hospital Discharge instructions Note Date & Type Note Facility Hospital Discharge instructions Additional Instructions Return with increased abdominal pain, nausea and vomiting, new or worsening symptoms. [facility] Work Phone: Reason for referral (narrative) Note Date & Type Note Facility Reason for referral (narrative) No reason for referral information available [facility] Work Phone: Summary Purpose Family History No Family History Records Found Relationship Condition Age at Onset Recorded Date/T kinza father Cardiac disease Unknown Myocardial infarction 62 Advance Directives No Advanced Directives Records Found Advance Directive Response Recorded Date/ Time Living Will No December 06, 2023 6:42pm Power of Flyer Maker No December 05 6:42pm Advance Directive Response Recorded Date/ Time Living Will No December 06, 2023 6:42pm Do you have a Healthcare Power of Flyer Maker? No December 06, 2023 6:42pm Advance Directive Response Recorded Date/ Time Living Will No December 06, 2023 6:42pm Do you have a Healthcare Power of Flyer Maker? No December 06, 2023 6:42pm Do you have a Healthcare Power of Flyer Maker? No February 05, 2025 11:21am Chief Complaint and Reason for Visit Chief Complaint LIPOMA BACK AREA COUGH/SINUS CONGESTION/ST/POST NASAL DRIP PALPITATIONS Reason for Visit Lipoma of back Chief Complaint Admit Date 6 M FU October 18, 2024 3:23pm INTERMITTENT PALPITATIONS November 13 7:54am Reason for Visit Admit Date Essential hypertension October 18 3:23pm Hyperlipidemia October 18, 2024 3:23pm Intermittent palpitations October 18, 2024 3:23pm Nonrheumatic mitral (valve) prolapse Feb ruodessa 2024 3:23pm WPW (Yefyu-Teegyyvqi-Iksqi syndrome) Fe ruodessa 2024 3:23pm Chief Complaint Admit Date 6 M FU October 18, 2024 3:23pm INTERMITTENT PALPITATIONS November 13 7:54am INTERMITTENT PALPITATIONS November 13 8:15am EAR PAIN December 18, 2024 12: 30pm EORDERS January 29, 2025 2:18p m Reason for Visit Admit Date Essential hypertension October 18 3:23pm Hyperlipidemia October 18, 2024 3:23pm Intermittent palpitations October 18, 2024 3:23pm Nonrheumatic mitral (valve) prolapse Feb ruodessa 2024 3:23pm WPW (Bagav-Jzknaxmum-Ncoxt syndrome) Fe ruodessa 2024 3:23pm Impacted cerumen, left ear December 18, 2 025 12:30pm Chief Complaint Admit Date 6 M FU October 18, 2024 3:23pm INTERMITTENT PALPITATIONS November 13 7:54am INTERMITTENT PALPITATIONS November 13 8:15am EAR PAIN December 18, 2024 12: 30pm EORDERS January 29, 2025 2:18p m ABD PAIN February 05, 2025 10:31 am Additional Source Comments (unrecognized sect ion and content) No Status Records FoundNo Status Records Found INFORMATION SOURCE (unrecogn ized section and content) DATE CREATED AUTHOR 09/16/2018 [facility] DATE CREATED AUTHOR AUTHOR'S ORGANIZ ATION 02/05/2025 [facility] Care Teams (unrecognized sec tion and content) Team Status: Active Member Role Status Dates Dr. Isaias Carrillo MD Family Provider Active Dr. Tank Marrufo MD Primary Care Provider Active Team Status: Inactive Member Role Status Dates Tank DU MD Primary Care Provider, Referring Provider Active Dr. Santiago Salas MD Attending Provider Active Team Status: Inactive Member Role Status Dates Tank DU MD Primary Care Provider, Referring Provider Active Enrique Perry PA, PA Attending Provider Active Team Status: Inactive Member Role Status Dates Dr. Ramirez Ku MD Emergency Provider Active Dr. Tank Marrufo MD Primary Care Provider Active Team Status: Inactive Member Role Status Dates Dr. Ramirez Ku MD Attending Provider, Emergency Pro vider Active Dr. Tank Marrufo MD Primary Care Provider Active Team Status: Inactive Member Role Status Dates Dr. Tank Marrufo MD Primary Care Provider, Attend ing Provider Active Team Status: Inactive Member Role Status Dates Dr. Tank Marrufo MD Primary Care Provider Active Kassie Frias NP, PIPE JOINTS SUPERVISOR-C Attending Provider, Referring P shilpi Active Team Status: Active Member Role Status Dates Dr. Tank Marrufo MD Primary Care Provider Active Team Status: Inactive Member Role Status Dates Dr. Tank Marrufo MD Primary Care Provider Active Start: October 18, 2024 End: October 18, 2024 Dr. Tank Marrufo MD Referring Provider Active Start: October 18, 2024 End: October 18, 2024 Tank Jose PIPE JOINTS SUPERVISOR, PIPE JOINTS SUPERVISOR-C Attending Provider Active S tart: October 18, 2024 End: October 18, 2024 Team Status: Inactive Member Role Status Dates Dr. Tank Marrufo MD Primary Care Provider Active Start: November 13, 2024 End: November 13, 2024 Tank H Roof PIPE JOINTS SUPERVISOR, PIPE JOINTS SUPERVISOR-C Attending Provider Active S tart: November 13, 2024 End: November 13, 2024 Tank Jose PIPE JOINTS SUPERVISOR, PIPE JOINTS SUPERVISOR-C Referring Provider Active S tart: November 13, 2024 End: November 13, 2024 Team Status: Active Member Role Status Dates Dr. Tank Marrufo MD Primary Care Provider Active Start: November 13, 2024 Dr. Reinaldo Morley MD Attending Provider Active S tart: November 13, 2024 Tank Jose PIPE JOINTS SUPERVISOR, PIPE JOINTS SUPERVISOR-C Referring Provider Active S tart: November 13, 2024 Team Status: Inactive Member Role Status Dates Dr. Tank Marrufo MD Primary Care Provider Active Start: December 18, 2024 End: December 18, 2024 Dr. Tank Marrufo MD Referring Provider Active Start: December 18, 2024 End: December 18, 2024 Enrique SAMPSON, PA Attending Provider Active Start: December 18, 2024 End: December 18, 2024 Team Status: Inactive Member Role Status Dates Dr. Tank Marrufo MD Primary Care Provider Active Start: January 29, 2025 End: January 29, 2025 Dr. Tank Marrufo MD Attending Provider Active Start: January 29, 2025 End: January 29, 2025 Dr. Tank Marrufo MD Referring Provider Active Start: January 29, 2025 End: January 29, 2025 Team Status: Inactive Member Role Status Dates Dr. Tank Marrufo MD Primary Care Provider Active Start: February 05, 2025 End: February 05, 2025 Ortega Jaimes MD Emergency Provider Active Star t: February 05, 2025 End: February 05, 2025 Goals (unrecognized section and content) Goals may be documented in a n alternate sectionGoals may be documented in an alternate sectionGoals may be documented in an alternate sectionGoals may be documented in an alternate sectionGoals may be documented in an alternate sectionGoals may be documented in an alternate section FOR RECORDS PERTAINING TO PATIENTS WHO ARE OR HAVE BEEN ENROLLED IN A CHEMICAL DEPENDENCY/SUBSTANCEABUSE PROGRAM, SOME INFORMATION MAY BE OMITTED. This clinical summary was aggregated from multiple sources. Caution should be exercised in using it in the provision of clinical care. This summary normalizes information from multiple sources, and as a consequence, information in this document may materially change the coding, format and clinical context of patient data. In addition, data may be omitted in some cases. CLINICAL DECISIONS SHOULD BE BASED ON THE PRIMARY CLINICAL RECORDS. [facility] [employer] [facility]. provides no warranty or guarantee of the accuracy or completeness of information in this document.
== END 2025-02-05 13:11 | disposition home or self-care (01) ==
PROVIDERS: Emergency Provider Emergency Medicine; PCP Family Medicine; Visit Provider Emergency Medicine
DX: R10.9 Unspecified abdominal pain (principal); R14.0 Abdominal distension (gaseous); I10 Essential (primary) hypertension; E78.5 Hyperlipidemia, unspecified; K21.9 Gastro-esophageal reflux disease without esophagitis; Z79.899 Other long term (current) drug therapy
CPT/HCPCS: 74177; 80048; 81001; 85025; 96360; 96361; 99283; Q9967

== ENCOUNTER → 2025-03-22 | Outpatient (CLI) | payer BC, SELFPAY ==
[2025-03-22 18:29] LABS: AST(SGOT) 22 U/L (<=37); Alanine Aminotransfer ALT/SGPT 22 U/L (<=46); Albumin, Serum 4.5 g/dL (3.5-5.0); Alkaline Phosphatase 46 U/L (40-129); Anion Gap 12 (5-15); BUN 18 mg/dL (4-19); BUN/Creat Ratio 15.1 RATIO (10-20); Calcium,Total 9.4 mg/dL (7.6-11.0); Carbon Dioxide 26.1 mmol/L (21.0-32.0); Chloride 99 mmol/L (98-108); Globulin 2.4 g/dL (2.2-4.2); Glucose 111 mg/dL (70-99); PSA,Total - Annual Screen 0.67 ng/mL (0.02-4.00); Potassium 4.1 mmol/L (3.3-5.1)
== END | disposition home or self-care (01) ==
LOC: MFPLAB 16:10
PROVIDERS: PCP Family Medicine; Referring Provider Family Medicine; Visit Provider Family Medicine
DX: Z12.5 Encounter for screening for malignant neoplasm of prostate (principal); I10 Essential (primary) hypertension
CPT/HCPCS: 36415; 80053; 84153; G0103